=== PATIENT | male | born 1935 | race Caucasian/White ===

== ENCOUNTER 2018-01-05 10:02 | Emergency (ER) | payer MEDICARE, OTHER ==
[2018-01-05 10:38] LABS: BILIRUBIN,URINE NEGATIVE (NEGATIVE); GLUCOSE, URINE (UA) NEGATIVE (NEGATIVE); KETONES,URINE (UA) NEGATIVE (NEGATIVE); LEUKOCYTE ESTERASE, URINE NEGATIVE (NEGATIVE); NITRITE,URINE NEGATIVE (NEGATIVE); OCCULT BLOOD,URINE LARGE (NEGATIVE); PH,URINE 5.5 PH (5.0-7.5); PROTEIN,URINE 100 mg/dL (NEGATIVE); UROBILINOGEN,URINE 0.2 (NORMAL) E.U./dL (NORMAL)
[2018-01-05 10:39] LABS: CLARITY,URINE CLOUDY (CLEAR)
[2018-01-05 10:45] LABS: BASOPHILS # (AUTO) 0.1 10^3/uL (0.0-0.1); BASOPHILS % (AUTO) 0.9 %; EOSINOPHILS # (AUTO) 0.3 10^3/uL (0.0-0.7); EOSINOPHILS % (AUTO) 2.5 %; HGB - HEMOGLOBIN 14.9 g/dL (14.0-18.0); LYMPHOCYTES # (AUTO) 2.1 10^3/uL (1.5-3.5); LYMPHOCYTES % (AUTO) 20.3 %; MEAN CORPUSCULAR HGB CONC 33.2 g/dL (32.0-36.0); MEAN CORPUSCULAR VOLUME 93.6 fL (80.0-94.0); MEAN PLATELET VOLUME 8.2 fL (7.4-11.4); MONOCYTES # (AUTO) 1.1 10^3/uL (0.0-1.0); MONOCYTES % (AUTO) 10.1 %; NEUTROPHILS # (AUTO) 6.9 10^3/uL (1.5-6.6); NEUTROPHILS % (AUTO) 66.2 %; PLT - PLATELET COUNT 278 10^3/uL (130-450); RED BLOOD COUNT 4.79 10^6/uL (4.70-6.10); RED CELL DISTRIBUTION WIDTH 15.2 % (12.0-15.0); WHITE BLOOD COUNT 10.4 x10^3/uL (4.8-10.8)
[2018-01-05] MEDS ORDERED: SODIUM CHLORIDE 0.9% 1,000 ML IV ONE (10:47)
[2018-01-05] MEDS ORDERED: ONDANSETRON 4 MG/2 ML VIAL IVP STA (10:47)
[2018-01-05] MEDS ORDERED: MORPHINE 2 MG/ML SYRINGE IVP STA ×5 (10:47→19:23)
--- NOTE | 2018-01-05 10:50 | ED Physician Documentation ---
History of Present Illness - Stated complaint Stated Complaint: SIDE PX - Chief complaint Chief Complaint: Abd Pain - Additonal information Additional information: hx from pt 82 male hx kidney stones L flank pain and dark urine nausea no vomit no fever chills on eliquis Review of Systems Constitutional: denies: Fever, Chills Cardiac: denies: Chest pain / pressure, Palpitations Respiratory: denies: Dyspnea, Cough GI: reports: Nausea. denies: Abdominal Pain, Vomiting, Diarrhea : reports: Hematuria (dark) Musculoskeletal: reports: Back pain Endocrine: reports: Easy bruising / bleeding Immunocompromised: denies: Immunocompromised PD PAST MEDICAL HISTORY - Past Medical History Cardiovascular: Hypertension, Atrial flutter : Kidney stones Musculoskeletal: Osteoarthritis - Past Surgical History Past Surgical History: Yes Ortho: Knee replacement, Shoulder arthroplasty - Present Medications Home Medications: Ambulatory Orders Medication Instructions Recorded Confirmed Apixaban [Eliquis] 01/05/18 01/05/18 Terazosin [Hytrin] 01/05/18 Verapamil [Calan] 01/05/18 - Allergies Allergies/Adverse Reactions: Allergies Allergy/AdvReac Type Severity Reaction Status Date / Time No Known Drug Allergies Allergy Verified 01/05/18 10:10 - Social History Does the pt smoke?: No Smoking Status: Never smoker Does the pt drink ETOH?: Yes Does the pt have substance abuse?: No PD ED PE NORMAL - Vitals Vital signs reviewed: Yes - Cardiac Cardiac: RRR - Respiratory Respiratory: No respiratory distress, Clear bilaterally - Abdomen Abdomen: Soft, Non tender, Other (no pulsatile mass) - Back Back: No CVA TTP (hurts but no changed by palp) - Derm Derm: Normal color, Other (no shingles rash) - Neuro Neuro: Alert and oriented X 3 Results - Vitals Vitals: Vital Signs - 24 hr 01/05/18 01/05/18 01/05/18 10:08 11:05 13:07 Temperature 36.5 C 36.9 C Heart Rate 86 88 81 Respiratory 18 13 20 Rate Blood Pressure 162/95 H 145/113 H 151/105 H O2 Saturation 97 99 95 01/05/18 01/05/18 15:19 16:29 Temperature Heart Rate 106 H 108 H Respiratory 12 20 Rate Blood Pressure 147/110 H 152/109 H O2 Saturation 97 95 Oxygen O2 Source Room air - Labs Labs: Laboratory Tests 01/05/18 01/05/18 01/05/18 10:25 10:25 10:32 WBC 10.4 RBC 4.79 Hgb 14.9 Hct 44.8 MCV 93.6 MCH 31.0 MCHC 33.2 RDW 15.2 H Plt Count 278 MPV 8.2 Neut # (Auto) 6.9 H Lymph # (Auto) 2.1 [place] # (Auto) 1.1 H Eos # (Auto) 0.3 Baso # (Auto) 0.1 Absolute Nucleated RBC 0.00 Nucleated RBC % 0.0 Sodium 140 Potassium 3.6 Chloride 105 Carbon Dioxide 24 Anion Gap 11.0 BUN 26 H Creatinine 0.9 Estimated GFR (MDRD) 81 L Glucose 98 Calcium 8.7 Total Bilirubin 1.0 AST 36 ALT 24 Alkaline Phosphatase 93 Total Protein 8.1 Albumin 4.0 Globulin 4.1 Albumin/Globulin Ratio 1.0 Lipase 33 Urine Color BROWN Urine Clarity CLOUDY Urine pH 5.5 Ur Specific [place] >=1.030 H Urine Protein 100 H Urine Glucose (UA) NEGATIVE Urine Ketones NEGATIVE Urine Occult Blood LARGE H Urine Nitrite NEGATIVE Urine Bilirubin NEGATIVE Urine Urobilinogen 0.2 (NORMAL) Ur Leukocyte Esterase NEGATIVE Urine RBC TNTC H Urine WBC 0-3 Ur Squamous Epith Cells FEW Squamous Urine Bacteria Moderate H Urine Casts 0-2 Granular Casts Urine Mucus Few Strands Ur Microscopic Review INDICATED Urine Culture Comments INDICATED - Rads (name of study) CT AP Radiology: See rad report (6 X 8 X 4 mm proximal L ureteral stone) PD MEDICAL DECISION MAKING - ED course ED course: long long wait in ED for Portuguese to confirm beds urology called back to check on pt he will see pt in AM and has him booked for AM surgery - cystoscopy and stent continue morphine PRN bed confirmed EMS transport now pending turned over to mid shift pending transport - Sepsis Event Vital Signs: Vital Signs - 24 hr 01/05/18 01/05/18 01/05/18 10:08 11:05 13:07 Temperature 36.5 C 36.9 C Heart Rate 86 88 81 Respiratory 18 13 20 Rate Blood Pressure 162/95 H 145/113 H 151/105 H O2 Saturation 97 99 95 01/05/18 01/05/18 15:19 16:29 Temperature Heart Rate 106 H 108 H Respiratory 12 20 Rate Blood Pressure 147/110 H 152/109 H O2 Saturation 97 95 Oxygen O2 Source Room air Departure - Departure Disposition: 02 Transfer Acute Care Hosp Clinical Impression: Ureteral stone Condition: Good
[2018-01-05 10:53] LABS: BACTERIA,URINE Moderate /HPF (None Seen); CASTS, URINE 0-2 Granular Casts /LPF; RBC,URINE TNTC /HPF (0-5); SQUAMOUS EPITHELIAL CELL,UR FEW Squamous (<= Few)
[2018-01-05 10:53] LABS: CALCIUM 8.7 mg/dL (8.5-10.3); CREATININE 0.9 mg/dL (0.6-1.2); TOTAL PROTEIN 8.1 g/dL (6.7-8.2)
[2018-01-05 10:54] LABS: MUCUS,URINE Few Strands
--- NOTE | 2018-01-05 12:11 | CT Report ---
Procedure Date: 01/05/2018 Accession Number: [id number] / [id number] Procedure: CT - Abdomen/Pelvis W/O CPT Code: FULL RESULT: EXAM: CT ABDOMEN AND PELVIS (CT KUB) EXAM DATE: 01/05/2018 11:40 AM. CLINICAL HISTORY: L flank pain c/w renal colic. COMPARISONS: None. TECHNIQUE: Routine axial helical CT imaging was performed through the abdomen and pelvis without IV contrast. Reconstructions: Coronal and sagittal. In accordance with CT protocol optimization, one or more of the following dose reduction techniques were utilized for this exam: automated exposure control, adjustment of mA and/or KV based on patient size, or use of iterative reconstructive technique. FINDINGS: Lung Bases: 3 mm calcified granuloma posterior basal left lower lobe. Minimal physiologic dependent bibasilar atelectasis. Right Kidney/Ureter: Approximately 5 mm, 7 mm, and 6 mm upper pole and 2 mm lower pole right renal calculi. No hydronephrosis. 3.0 cm exophytic cortical cyst at the lower pole of the right kidney. Left Kidney/Ureter: 2.0 cm mildly exophytic mildly hyperdense nodular focus of the anterior upper pole cortex. No intrarenal calculi. 6 x 4 x 8 mm proximal left ureteral calculus at the L3-L4 level which is visible on the stake setter. Mild left hydronephrosis and perinephric fat stranding. Other Solid Organs: Noncontrast images of the solid organs are grossly unremarkable. Gallbladder/Bile Ducts: Unremarkable. Peritoneal Cavity: 1 cm diverticulum medially directed from the second portion of the duodenum. Stomach and small bowel nondistended. Appendix is normal. There is a small amount of formed stool in the colon. There is mild diverticulosis in the transverse and descending colon. There is marked diverticulosis in the sigmoid colon. There is no pericolonic fat stranding. There is no lymphadenopathy, ascites, or pneumoperitoneum. Pelvic Organs: The bladder is small in volume. There are no bladder calculi. The prostate gland is moderately enlarged and shows mild dystrophic calcification. Seminal vesicles are unremarkable. Vasculature: There is calcification in the right coronary artery. Heart size is upper normal. There is minimal aortoiliac atherosclerotic calcification without abnormal dilation. Other: Abdominal wall is unremarkable. 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 There is moderate multilevel lumbar degenerative disk disease. Status post L4 laminectomy bilaterally. IMPRESSION: 1. Mildly obstructing 6 x 4 x 8 mm proximal left ureteral calculus at the L3-L4 level. A stone of this size is unlikely to pass. 2. Nonobstructing right intrarenal calculi. 3. Moderate prostatomegaly. 4. Marked sigmoid colon diverticulosis. 5. Right coronary artery calcification. RADIA ADDENDUM: 01/05/18 12:56 As noted in the findings section, there is a 2 cm mildly hyperdense nodule at the anterior surface of the upper pole of the left kidney. The finding is difficult to characterize on this noncontrast study but may represent a hyperdense proteinaceous cyst rather than a solid nodule. Ultrasound would be of value in further characterization.
[2018-01-05] MEDS ORDERED: cefTRIAXone 1 GM in SODIUM CHLORIDE 0.9% MINIBAG 100 ML IV STA (12:48)
[2018-01-05 18:13] VITALS: BP 135/78
== END 2018-01-05 19:34 | disposition short-term general hospital (02) ==
LOC: ED 10:02
DX: N20.1 Calculus of ureter (principal); I10 Essential (primary) hypertension; Z96.659 Presence of unspecified artificial knee joint
CPT/HCPCS: 36415; 74176; 80053; 81001; 83690; 85025; 87086; 96361; 96365; 96375; 96376; 99284; J2270; 81003

== ENCOUNTER 2018-01-05 19:28 | Outpatient (CLI) | payer MEDICARE, OTHER | END 2018-01-05 19:29 | disposition short-term general hospital (02) | LOC: EMS 19:28 | PROVIDERS: ATTEND Surgery | DX: N20.0 Calculus of kidney (principal) | CPT/HCPCS: A0170; A0425; A0426 ==

== ENCOUNTER 2018-12-05 15:46 | Outpatient (CLI) | payer MEDICARE, OTHER ==
[2018-12-05 16:29] LABS: ALBUMIN 3.9 g/dL (3.2-5.5); BILIRUBIN,DIRECT 0.2 mg/dL (0.1-0.5); BILIRUBIN,TOTAL 1.3 mg/dL (0.2-1.0); TOTAL PROTEIN 7.5 g/dL (6.7-8.2)
[2018-12-05 16:42] LABS: INR 1.5 (0.8-1.2); PT - PROTHROMBIN TIME 17.2 secs (9.9-12.6)
[2018-12-08 16:08] LABS: HCV RNA QNT <1.18 NOT DETECTED Log IU/mL (NOT DETECTED); HCV RNA QUANT RT PCR <15 NOT DETECTED IU/mL (NOT DETECTED)
== END 2018-12-05 15:47 | disposition home or self-care (01) ==
LOC: LAB 15:46
PROVIDERS: ATTEND Nurse Practitioner
DX: I48.0 Paroxysmal atrial fibrillation (principal); R74.8 Abnormal levels of other serum enzymes
CPT/HCPCS: 36415; 80076; 81599; 82977; 85610; 86790; 87522

== ENCOUNTER 2023-02-03 18:39 | Emergency (ER) | payer MEDICARE, OTHER ==
[2023-02-03 18:47] VITALS: O2SAT 98
[2023-02-03] MEDS ORDERED: TETANUS/DIPHTHERIA/PERTUSSIS 0.5 ML SYRINGE IM ONE (18:59)
--- NOTE | 2023-02-03 19:00 | ED Physician Documentation ---
History of Present Illness - Stated complaint Stated Complaint: RT ARM LAC - Chief complaint Chief Complaint: Laceration - History obtained from History obtained from: Patient - History of Present Illness Timing: Today Pain level max: 0 Pain level now: 0 - Additonal information Additional information: 87-year-old male states that he fell today onto a piece of wood and caused a skin tear to the right forearm. Bandaged at home. Unknown last tetanus shot. Denies any other injuries. No head injury. No loss of consciousness. No headache. Not on blood thinners. Nothing makes it better or worse. Review of Systems Constitutional: denies: Fever GI: denies: Vomiting, Diarrhea Skin: denies: Rash Musculoskeletal: denies: Neck pain, Back pain Neurologic: denies: Headache PD PAST MEDICAL HISTORY - Past Medical History Cardiovascular: Hypertension, Atrial flutter : Kidney stones Musculoskeletal: Osteoarthritis - Past Surgical History Past Surgical History: Yes Ortho: Knee replacement, Shoulder arthroplasty - Present Medications Home Medications: Ambulatory Orders Medication Instructions Recorded Confirmed Apixaban [Eliquis] 2.5 mg PO DAILY 01/05/18 02/03/23 Terazosin [Hytrin] 5 mg PO DAILY 01/05/18 02/03/23 Verapamil [Calan] 80 mg PO DAILY 01/05/18 02/03/23 - Allergies Allergies/Adverse Reactions: Allergies Allergy/AdvReac Type Severity Reaction Status Date / Time No Known Drug Allergies Allergy Verified 02/03/23 18:43 - Social History Does the pt smoke?: No Smoking Status: Never smoker Does the pt drink ETOH?: Yes Does the pt have substance abuse?: No PD ED PE NORMAL - Vitals Vital signs reviewed: Yes - General General: Alert and oriented X 3, No acute distress - HEENT HEENT: Atraumatic, PERRL, Moist mucous membranes - Neck Neck: Supple, no meningeal sign, No bony TTP - Back Back: No spinal TTP - Derm Derm: Warm and dry - Extremities Extremities: Other (R forearm - 0.5x2cm skin avulsion) - Neuro Neuro: Alert and oriented X 3, med dir 2-12 intact, No motor deficit, No sensory deficit, Normal speech Eye Opening: Spontaneous Motor: Obeys Commands Verbal: Oriented GCS Score: 15 Results - Vitals Vitals: Vital Signs - 24 hr 02/03/23 02/03/23 18:43 19:17 Temperature 36.5 C 36.8 C Heart Rate 68 70 Respiratory 16 20 Rate Blood Pressure 145/88 H 142/80 H O2 Saturation 98 98 Oxygen O2 Source Room air PD Medical Decision Making - ED course Complexity details: considered differential, d/w patient ED course: Patient with a small skin tear on the arm. The wound was cleansed and bandaged. Tdap given. No evidence of foreign body. Warnings of infection and instructions on wound care given at bedside. Also counseled on how to minimize scarring. Patient counseled regarding signs and symptoms for which I believe and urgent re-evaluation would be necessary. Patient with good understanding of and agreement to plan and is comfortable going home at this time This document was made in part using voice recognition software. While efforts are made to proofread this document, sound alike and grammatical errors may occur. Departure - Departure Disposition: 01 Home, Self Care Clinical Impression: Skin tear Condition: Good Instructions: ED Avulsion Dermal Follow-Up: your,doctor in 1 week for wound check [Other] Comments: Please follow with your doctor in 1 week for a wound check. Keep the wound clean. Return if you notice redness, swelling or drainage from the wound. You were given a tetanus shot today. Forms: PCP List Discharge Date/Time: 02/03/23 19:17
[2023-02-03 19:24] VITALS: BP 142/80
== END 2023-02-03 19:17 | disposition home or self-care (01) ==
LOC: ED 18:39
DX: S41.111A Laceration without foreign body of right upper arm, initial encounter (principal); W19.XXXA Unspecified fall, initial encounter; I10 Essential (primary) hypertension; Z23 Encounter for immunization
CPT/HCPCS: 90471; 99282; 99283

== ENCOUNTER 2023-06-20 22:26 | Outpatient (CLI) | payer MEDICARE, OTHER | END 2023-06-20 23:59 | disposition critical access hospital (66) | LOC: EMS 22:26 | DX: R55 Syncope and collapse (principal); R07.1 Chest pain on breathing; R07.89 Other chest pain; W19.XXXA Unspecified fall, initial encounter; Y92.012 Bathroom of single-family (private) house as the place of occurrence of the external cause; I48.91 Unspecified atrial fibrillation; R00.8 Other abnormalities of heart beat; I49.3 Ventricular premature depolarization | CPT/HCPCS: A0425; A0429 ==

== ENCOUNTER 2023-06-20 22:45 | Observation (INO) | payer MEDICARE, OTHER ==
--- NOTE | 2023-06-21 00:36 | ED Physician Documentation ---
History of Present Illness - Stated complaint Stated Complaint: GLF, RIB PAIN - Chief complaint Chief Complaint: Trauma Ch/Bk - History obtained from History obtained from: Patient - Additonal information Additional information: HPI from patient. Patient presents with chief complaint of right lower chest wall/rib pain. At approximately noon today patient underwent ureteroscopy for laser lithotripsy of a right-sided kidney stone. Per patient, the procedure was not a success, and the plan is to schedule for another procedure in the coming weeks (patient's description sounds suggestive of nephrostomy). The kidney stone was an incidental discovery on imaging study; he did not have any pain leading up to the procedure today. Tonight at approximately 10 PM, patient was at home and getting ready for bed. He says he braced himself against a wall, and then woke up on the floor of the bathroom. Upon waking up, and since the incident, he has had right lower anterolateral chest wall pain that is worse with palpation, movement, and deep breath in. It is unclear if he had presyncopal symptoms; patient says that, due to peripheral neuropathy, it is not uncommon for him to need to brace against t he wall as he walks. He does not recall having any lightheadedness, chest pain, shortness of breath. He denies headache, visual changes, weakness, numbness, dyspnea at this time. Note that patient takes eliquis for atrial fibrillation but this was stopped 4 days ago (in anticipation of the urology procedure). Review of Systems Constitutional: reports: Fever, Fatigue Cardiac: reports: Chest pain / pressure (right anterolateral chest wall pain) Respiratory: denies: Dyspnea, Cough, Hemoptysis GI: reports: Reviewed and negative : denies: Dysuria, Frequency Musculoskeletal: reports: Reviewed and negative Neurologic: reports: Syncope, LOC. denies: Generalized weakness, Focal weakness, Numbness, Headache, Head injury PD PAST MEDICAL HISTORY - Past Medical History Past Medical History: Yes Cardiovascular: Hypertension, Atrial flutter : Kidney stones Musculoskeletal: Osteoarthritis - Past Surgical History Past Surgical History: Yes Ortho: Knee replacement, Shoulder arthroplasty - Present Medications Home Medications: Ambulatory Orders Medication Instructions Recorded Confirmed Apixaban [Eliquis] 2.5 mg PO DAILY 01/05/18 06/20/23 Terazosin [Hytrin] 5 mg PO DAILY 01/05/18 06/20/23 Verapamil [Calan] 80 mg PO DAILY 01/05/18 06/20/23 - Allergies Allergies/Adverse Reactions: Allergies Allergy/AdvReac Type Severity Reaction Status Date / Time No Known Drug Allergies Allergy Verified 06/20/23 23:02 - Social History Does the pt smoke?: No Smoking Status: Never smoker Does the pt drink ETOH?: Yes Does the pt have substance abuse?: No PD ED PE NORMAL - Vitals Vital signs reviewed: Yes - General General: Alert and oriented X 3, No acute distress (NAD at rest but obvious painful discomfort with movement involving torso), Well developed/nourished - HEENT HEENT: Atraumatic, PERRL, EOMI - Neck Neck: No bony TTP - Cardiac Cardiac: RRR, No murmur - Respiratory Respiratory: No respiratory distress, Clear bilaterally - Abdomen Abdomen: Soft, Non distended, Other (RUQ TTP without guarding or rebound) - Extremities Extremities: No deformity, No tenderness to palpate, Normal ROM s pain, No edema - Neuro Neuro: Alert and oriented X 3, division service manager 2-12 intact, No motor deficit, No sensory deficit, Normal speech Eye Opening: Spontaneous Motor: Obeys Commands Verbal: Oriented GCS Score: 15 PD ED PE EXPANDED - Cardiac Cardiac: Chest wall TTP (right lower anterolateral chest wall TTP) Results - Vitals Vitals: Vital Signs - 24 hr 06/20/23 06/20/23 06/21/23 22:53 23:26 01:00 Temperature Heart Rate 103 H 96 101 H Respiratory 22 17 17 Rate Blood Pressure 152/89 H 163/93 H 152/95 H O2 Saturation 96 98 95 06/21/23 06/21/23 06/21/23 01:55 03:00 04:04 Temperature 36.5 C 36.2 C L Heart Rate 90 91 Respiratory 18 17 Rate Blood Pressure 148/85 H 163/91 H O2 Saturation 96 93 06/21/23 06:00 Temperature Heart Rate 87 Respiratory 18 Rate Blood Pressure 138/99 H O2 Saturation 96 Oxygen O2 Source Room air - EKG (time done) No standard instances EKG releavant findings:: EKG personally interpreted by author of this note. Relevant findings are: Rate: Rate (enter#) (103) Rhythm: Atrial fibrillation [place]: LAD Ischemia: Normal ST segments Other comments: Other comments (PVCs) - Labs Labs: Laboratory Tests 06/21/23 06/21/23 06/21/23 01:45 01:45 01:45 WBC 16.3 H RBC 3.23 L Hgb 9.0 L Hct 29.9 L MCV 92.6 MCH 27.9 MCHC 30.1 L RDW 16.4 H Plt Count 264 MPV 10.0 Neut # (Auto) Not Reportable Lymph # (Auto) Not Reportable [place] # (Auto) Not Reportable Eos # (Auto) Not Reportable Baso # (Auto) Not Reportable Absolute Nucleated RBC Not Reportable Total Counted 100 Band Neuts % (Manual) 4 Abnorm Lymph % (Manual) 0 Nucleated RBC % Not Reportable Neutrophils # (Manual) 15.0 H Lymphocytes # (Manual) 0.8 L Monocytes # (Manual) 0.5 Eosinophils # (Manual) 0.0 Basophils # (Manual) 0.0 Differential Comment MANUAL DIFFERENTIAL Platelet Estimate NORMAL (130-450,000) RBC Morph Micro Appear NORMAL APPEARANCE Sodium 136 Potassium 4.8 H Chloride 108 Carbon Dioxide 21 Anion Gap 7.0 BUN 36 H Creatinine 1.5 H Estimated GFR (MDRD) 44 L Glucose 107 H Calcium 8.5 Total Bilirubin 0.5 AST 27 ALT 16 Alkaline Phosphatase 159 H Troponin I High Sens 87.0 H* Total Protein 7.1 Albumin 3.6 Globulin 3.5 Albumin/Globulin Ratio 1.0 Lipase 29 06/21/23 04:48 WBC RBC Hgb Hct MCV MCH MCHC RDW Plt Count MPV Neut # (Auto) Lymph # (Auto) [place] # (Auto) Eos # (Auto) Baso # (Auto) Absolute Nucleated RBC Total Counted Band Neuts % (Manual) Abnorm Lymph % (Manual) Nucleated RBC % Neutrophils # (Manual) Lymphocytes # (Manual) Monocytes # (Manual) Eosinophils # (Manual) Basophils # (Manual) Differential Comment Platelet Estimate RBC Morph Micro Appear Sodium Potassium Chloride Carbon Dioxide Anion Gap BUN Creatinine Estimated GFR (MDRD) Glucose Calcium Total Bilirubin AST ALT Alkaline Phosphatase Troponin I High Sens 91.4 H* Total Protein Albumin Globulin Albumin/Globulin Ratio Lipase - Rads (name of study) right ribs with PA chest Relevant Findings:: Prelim report reviewed, See rad report CT A/P with IV contrast Relevant Findings:: Prelim report reviewed, See rad report CT chest w/o contrast Relevant Findings:: Prelim report reviewed, See rad report PD Medical Decision Making - ED course Complexity details: reviewed results, re-evaluated patient, considered differential, d/w patient ED course: Presents after syncopal episode at home with brief LOC. As result of falling to the floor, he sustained 4 rib fractures (radiologist interpretation of the plain-film x-rays was initially 2 rib fractures, CT of the abdomen pelvis read as 3 rib fractures, and subsequent CT of the chest is fractures of ribs 6, 7, 8, and 9). The studies also show evidence of right-sided hydropneumothorax, estimated to be up to 10% in size. There is no evidence of intra-abdominal injury on the CT of the abdomen and pelvis. The patient is in NAD during ED stay as long as he remains at rest in the bed. He has obvious painful distress with palpation of the right chest wall as well as with any movement involving the torso. His pain is adequately controlled with aliquots of IV morphine. There are no concerning findings on EKG. Patient is afebrile. He has leukocytosis with white blood cell count of 16.3, likely due to demargination associated with tonight's injury. Hemoglobin is low at 9.0; given the trace amount of fluid on CT of the chest, this is unlikely to represent acute blood loss. Mild hyperkalemia with potassium of 4.8. Mildly elevated renal function test with BUN of 36 and creatinine 1.5. His high- sensitivity troponin is elevated (87), but a 3-hour repeat results at 91.4, representing an insignificant change from the initial value. Given multiple rib fractures, hemopneuomthorax and patient's age, admission to ICU is indicated. I discussed this case with Dr. Guerra (document control supervisor surgery for [facility]), agrees with admission provided I first discuss the case with patient's urologist first. I was able to reach Dr. Kraft, the urologist who performed the lithotripsy yesterday at [facility] in [place]. Dr. Kraft says that from the urology standpoint there is no indication for transfer at this time provided patient is not evidencing signs/symptoms of infection. I had not ordered a UA at that point but Dr. Kraft advises against UA unless patient is specifically describing symptoms of urologic-related infection (such as dysuria), as he will likely have both RBCs and WBCs due to the recent procedure. Dr. Kraft also confirms that attempts at lithotripsy, as well as stent placement, were unsuccessful and the plan is indeed to take patient back to OR in the coming weeks for reattempt at stent but from proximal end of ureter via nephrostomy. Dr. Kraft says that the air noted in right kidney on CT is normal finding given yesterday's procedure. Patient is comfortable with admission to [facility]. Departure - Departure Disposition: [facility] DC/Xfer Clinical Impression: Pneumothorax on right Rib fractures Qualifiers: Encounter type: initial encounter Fracture type: closed Laterality: right Qualified Code(s): S22.41XA - Multiple fractures of ribs, right side, initial encounter for closed fracture Syncope Qualifiers: Syncope type: unspecified Qualified Code(s): R55 - Syncope and collapse Condition: Stable
[2023-06-21] MEDS ORDERED: MORPHINE 2 MG/ML CARPUJECT IVP STA ×3 (01:09→04:43)
[2023-06-21] MEDS ORDERED: iohexoL-300 100 ML VIAL ONE (01:17)
[2023-06-21 01:53] LABS: BASOPHILS % (AUTO) 0.2 %; HCT - HEMATOCRIT 29.9 % (42.0-52.0); LYMPHOCYTES % (AUTO) 7.8 %; MEAN CORPUSCULAR HEMOGLOBIN 27.9 pg (27.0-31.0); MEAN CORPUSCULAR HGB CONC 30.1 g/dL (32.0-36.0); MEAN CORPUSCULAR VOLUME 92.6 fL (80.0-94.0); NEUTROPHILS % (AUTO) 81.5 %; PLT - PLATELET COUNT 264 10^3/uL (130-450); RED BLOOD COUNT 3.23 10^6/uL (4.70-6.10); RED CELL DISTRIBUTION WIDTH 16.4 % (12.0-15.0); WHITE BLOOD COUNT 16.3 x10^3/uL (4.8-10.8)
[2023-06-21 02:00] LABS: ABNORMAL LYMPHS % (MANUAL) 0 %
[2023-06-21 02:08] LABS: ALBUMIN 3.6 g/dL (3.2-5.5)
[2023-06-21 02:46] LABS: BILIRUBIN,TOTAL 0.5 mg/dL (0.2-1.0); CALCIUM 8.5 mg/dL (8.5-10.3); POTASSIUM 4.8 mmol/L (3.5-4.5); TOTAL PROTEIN 7.1 g/dL (6.4-8.9)
[2023-06-21 03:19] LABS: CREATININE 1.5 mg/dL (0.6-1.3)
[2023-06-21 03:25] LABS: BAND NEUTROPHILS % (MANUAL) 4 %; DIFFERENTIAL COMMENT MANUAL DIFFERENTIAL; LYMPHOCYTES # (MANUAL) 0.8 10^3/uL (1.5-3.5); LYMPHOCYTES % (MANUAL) 5 %; MONOCYTES # (MANUAL) 0.5 10^3/uL (0.0-1.0); PLATELET ESTIMATE, MANUAL NORMAL (130-450,000) (NORMAL); RBC MORPHOLOGY (MULTIPLE) NORMAL APPEARANCE (NORMAL)
[2023-06-21] MEDS ORDERED: iohexoL-300 100 ML VIAL IVP ONE (04:17)
--- NOTE | 2023-06-21 07:08 | CONSULTATION NOTE ---
Surgery Consult - Home Meds/Allergies Home Medications: Patient History Medication Instructions Recorded Confirmed Apixaban [Eliquis] 2.5 mg PO DAILY 01/05/18 06/20/23 Terazosin [Hytrin] 5 mg PO DAILY 01/05/18 06/20/23 Verapamil [Calan] 80 mg PO DAILY 01/05/18 06/20/23 Allergies/Adverse Reactions: Allergies Allergy/AdvReac Type Severity Reaction Status Date / Time No Known Drug Allergies Allergy Verified 06/20/23 23:02 - Vital Signs Vital Signs: Last Vital Signs Temp 97.2 F L 06/21/23 04:04 Pulse 91 06/21/23 04:04 Resp 17 06/21/23 04:04 BP 163/91 H 06/21/23 04:04 Pulse Ox 93 06/21/23 04:04 O2 Flow Rate - Lab Results Result Diagrams: 06/21/23 01:45 06/21/23 01:45 - Consultation Note Consultation Note: General Surgery Rib Fracture Consultation Note Assessment: 1) Fracture right ribs 6,7,8 with tiny right hemopneumothorax - Pain under good control and no clinical signs of respiratory distress 2) Syncopal episode with GLF causing #1 3) S/P attempted right lithotripsy 06/20/15 4) Atrial fibrillation, on chronic Eliquis (stopped 5 days ago) 5) History of autoimmune disorder Recommendation: It would be prudent to contact his [place] Urologist and inform him of his patient's syncope and GLF. They may prefer to manage his care there as this occurred within 24 hours of discharge from their facility. Otherwise, we should admit this patient to the ICU under the care of our [facility] and Surgery will assist in management of his rib fractures. His age and the number of ribs fractured place him at high risk for morbidity (pneumonia) and mortality. Rib Fracture Multimodality Analgesia Strategy 1) Lidocaine patch right chest wall. Change q 12 hrs 2) Acetaminophen and Gabapentin scheduled; Oxycodone PO prn 3) IV Dilaudid as needed 4) IS 5-6 x per hour 5) Supplemental oxygen as needed 6) Dangle at bedside/ambulate 4-6 x a day 7) Consider epidural catheter (consult anesthesia) if above analgesic measures fail to provide enough relief for adequate pulmonary hygiene 8) His elevated serum creatinine precludes the use of NSAID's at this time 9) Surgery will follow Reason for Consultation GLF with right rib fractures Chief Complaint Mild right chest wall pain HPI Floyd is an 87 year old male who underwent an attempt at lithotripsy of a right kidney stone at [facility] yesterday. He stopped his Eliquis 4 days prior to that procedure. He was discharged at around 1100 and last evening while walking in his home he had a syncopal episode that caused him to fall to the ground onto his left side. It was unwitnessed and he does not remember falling. His heard him fall and called for an ambulance that brought him to our ED. He has been hemodynamically stable since admission and CT/CXR workup identified 3 right rib fractures with a tiny tight hemopneumothorax. Troponins were obtained and are elevated and his cardiac rhythm demonstrates atrial fibrillation with a normal rate. I was asked by the ED physician to assist in Floyd's evaluation and management. Floyd and his live in [place] and their entire care team is at [facility]. [place] are currently residing there. He denies SOB and only has mild right sided chest pain with deep inspiration. he has been given IV morphine in the ED to control his chest wall discomfort. Past Medical History Atrial fibrillation Autoimmune disorder Past Surgical History Bilateral shoulder and knee surgery. Denies Thoracic or Abdominal surgery Current Medications Eliquis, Verapamil, Terazosin Allergies None ROS Pertinent positives Mild right chest pain with deep inspiration All other reviewed systems negative VS - see above PE GENERAL APPEARANCE: Normal development, normal body habitus, normal grooming PSYCHIATRIC: AAO; Comfortable; In NAD EYES: Pupils equil, round and reactive to light, sclera anicteric EARS, NOSE, MOUTH, THROAT: Hearing normal, Oral mucous membranes moist and without lesions; NECK: No crepitus, lymphadenopathy, or thyromegaly LUNGS: Clear to auscultation without wheezing; No use of accessory muscles to breathe; CHEST WALL: Tenderness right lateral rib cage without crepitus, flail, or rib movement; No ecchymosis SKIN: Anicteric; No rashes, lesions, Ulcerations Labs - See above Imaging CT chest - fractured right ribs 5, 6,7,8; non-displaced; tiny right hemopneumothorax All images were personally reviewed by me for this encounter - NAREN Guerra MD, FACS General Surgery Service
[2023-06-21] MEDS ORDERED: SODIUM CHLORIDE FLUSH 0.9% 10 ML SYRINGE IVP PRN (07:57)
[2023-06-21] MEDS ORDERED: ONDANSETRON 4 MG/2 ML VIAL IVP PRN (07:57)
[2023-06-21] MEDS ORDERED: oxyCODONE 5 MG TABLET PO PRN (07:57)
[2023-06-21] MEDS ORDERED: HYDROmorphone 0.5 MG/0.5 ML SYRINGE IVP PRN (07:57)
--- NOTE | 2023-06-21 08:06 | HISTORY & PHYSICAL EXAMINATION ---
History - Past Medical History Cardiovascular: reports: Hypertension, Atrial flutter : reports: Kidney stones Musculoskeletal: reports: Osteoarthritis MRSA Hx?: No - Past Surgical History Ortho: reports: Knee replacement, Shoulder arthroplasty Meds/Allgy - Home Medications Home Medications: Ambulatory Orders Medication Instructions Recorded Confirmed Apixaban [Eliquis] 2.5 mg PO DAILY 01/05/18 06/20/23 Terazosin [Hytrin] 5 mg PO DAILY 01/05/18 06/20/23 Verapamil [Calan] 80 mg PO DAILY 01/05/18 06/20/23 - Allergies Allergies/Adverse Reactions: Allergies Allergy/AdvReac Type Severity Reaction Status Date / Time No Known Drug Allergies Allergy Verified 06/20/23 23:02 Exam - Vital Signs Vital Signs: Vital Signs x48h Temp Pulse Resp BP Pulse Ox 06/21/23 06:00 87 18 138/99 H 96 06/21/23 04:04 97.2 F L 91 17 163/91 H 93 06/21/23 03:00 90 18 148/85 H 96 06/21/23 01:55 97.7 F 06/21/23 01:00 101 H 17 152/95 H 95 Conclusion/Plan - Lab Results Fish Bones: 06/21/23 01:45 06/21/23 01:45 - Other Other Results/Comments: General Surgery H&P Assessment: 1) Fracture right ribs 6,7,8 with tiny right hemopneumothorax - Pain under good control and no clinical signs of respiratory distress 2) Syncopal episode with GLF causing #1 3) S/P attempted right lithotripsy 06/20/15 4) Atrial fibrillation, on chronic Eliquis (stopped 5 days ago) 5) History of autoimmune disorder Recommendation: It would be prudent to contact his [place] Urologist and inform him of his patient's syncope and GLF. They may prefer to manage his care there as this occurred within 24 hours of discharge from their facility. Otherwise, we should admit this patient to the ICU under the care of our [facility] and Surgery will assist in management of his rib fractures. His age and the number of ribs fractured place him at high risk for morbidity (pneumonia) and mortality. Addendum: The above was done and [facility] has no issues with us admitting this patient to our facility. The patient will be admitted to the General Surgery Service for management of his rib fractures with Internal Medicine as a surgical product sales consultant to assist in management of his other medical conditions. - NAREN Rib Fracture Multimodality Analgesia Strategy 1) Lidocaine patch right chest wall. Change q 12 hrs 2) Acetaminophen and Gabapentin scheduled; Oxycodone PO prn 3) IV Dilaudid as needed 4) IS 5-6 x per hour 5) Supplemental oxygen as needed 6) Dangle at bedside/ambulate 4-6 x a day 7) Consider epidural catheter (consult anesthesia) if above analgesic measures fail to provide enough relief for adequate pulmonary hygiene 8) His elevated serum creatinine precludes the use of NSAID's at this time Reason for Consultation GLF with right rib fractures Chief Complaint Mild right chest wall pain HPI Floyd is an 87 year old male who underwent an attempt at lithotripsy of a right kidney stone at [facility] yesterday. He stopped his Eliquis 4 days prior to that procedure. He was discharged at around 1100 and last evening while walking in his home he had a syncopal episode that caused him to fall to the ground onto his left side. It was unwitnessed and he does not remember falling. His heard him fall and called for an ambulance that brought him to our ED. He has been hemodynamically stable since admission and CT/CXR workup identified 3 right rib fractures with a tiny tight hemopneumothorax. Troponins were obtained and are elevated and his cardiac rhythm demonstrates atrial fibrillation with a normal rate. I was asked by the ED physician to assist in Floyd's evaluation and management. Floyd and his live in [place] and their entire care team is at [facility]. He denies SOB and only has mild right sided chest pain with deep inspiration. he has been given IV morphine in the ED to control his chest wall discomfort. Past Medical History Atrial fibrillation Autoimmune disorder Past Surgical History Bilateral shoulder and knee surgery. Denies Thoracic or Abdominal surgery Current Medications Eliquis, Verapamil, Terazosin Allergies None ROS Pertinent positives Mild right chest pain with deep inspiration All other reviewed systems negative VS - see above PE GENERAL APPEARANCE: Normal development, normal body habitus, normal grooming PSYCHIATRIC: AAO; Comfortable; In NAD EYES: Pupils equil, round and reactive to light, sclera anicteric EARS, NOSE, MOUTH, THROAT: Hearing normal, Oral mucous membranes moist and without lesions; NECK: No crepitus, lymphadenopathy, or thyromegaly LUNGS: Clear to auscultation without wheezing; No use of accessory muscles to breathe; CHEST WALL: Tenderness right lateral rib cage without crepitus, flail, or rib movement; No ecchymosis SKIN: Anicteric; No rashes, lesions, Ulcerations Labs - See above Imaging CT chest - fractured right ribs 5, 6,7,8; non-displaced; tiny right he mopneumothorax All images were personally reviewed by me for this encounter - NAREN Guerra MD, [facility] General Surgery Service
--- NOTE | 2023-06-21 08:23 | XRAY Report ---
PROCEDURE: Ribs w/PA Chest 3+V RT INDICATIONS: fall, right low chest wall pain TECHNIQUE: 6 views of the ribs were acquired, along with a single view chest. COMPARISON: None. FINDINGS: Surgical changes and devices: There is bilateral shoulder arthroplasty. Bones and chest wall: Minimally displaced fractures involving right lateral seventh and eighth ribs are seen.. No suspicious bony lesions. Overlying soft tissues appear unremarkable. Lungs and pleura: There is small right pleural effusion and possible trace left pleural effusion. Bib asilar atelectasis versus small infiltrate is seen. Small less than 10% right apical pneumothorax is noted. Mediastinum: Mildly tortuous thoracic aorta and cardiomegaly is seen. IMPRESSION: Minimally displaced right lateral seventh and eighth rib fractures. Small less than 10% right apical pneumothorax. Right greater than left bilateral pleural effusion and bibasilar atelectasis. Findings are concordant with preliminary interpretation provided by [facility]. Reviewed by: Cody Chand MD on 06/21/2023 8:22 AM PST Approved by: Cody Chand MD on 06/21/2023 8:22 AM PST Station ID: [id number]
[2023-06-21] MEDS: FAMOTIDINE 20 MG/2 ML VIAL IVP SCH ×2 (09:22→21:32)
[2023-06-21] MEDS: LACTATED RINGERS 1,000 ML IV SCH ×2 (09:24→22:42)
[2023-06-21] MEDS: SODIUM CHLORIDE FLUSH 0.9% 10 ML SYRINGE IVP SCH ×2 (09:24→16:42)
[2023-06-21] MEDS: LIDOCAINE PATCH 4% TOP SCH ×2 (10:02→21:32)
--- NOTE | 2023-06-21 10:39 | CT Report ---
PROCEDURE: Chest WO INDICATIONS: right rib fractures, pneumothorax TECHNIQUE: A CT scan of the chest was performed. Intravenous contrast media was not administered. Images were re corded and evaluated at appropriate window settings. Reformats: axial MIP of the chest, coronal and s agittal. For radiation dose reduction, the following was used: automated exposure control, adjustment of mA and/or kV according to patient size. COMPARISON: Chest x-ray performed same day FINDINGS: Image quality: Excellent. Lungs and pleura: Small parenchymal consolidation posterior medial in the right lower lobe with mild overlying groundglass opacity, underlying trace effusion, and small subpleural pneumatoceles. Small d ependent left lung base consolidation and trace effusion. A small anteriorly layering right pneumotho rax. No mediastinal shift. No left pneumothorax. No suspicious pulmonary nodules or masses. Mediastinum: Heart size is enlarged with moderate coronary artery calcification. Trace pericardial ef fusion. Mildly aneurysmal ascending thoracic aorta at 4.4 cm AP diameter. A few borderline noncalcifi ed mediastinal lymph nodes, the largest right paratracheal lymph node measures 1.2 cm. There are calc ified left hilar lymph nodes. No substernal hematoma or anterior mediastinal mass. Normal esophagus w ithout hiatal hernia. Chest wall and lower neck: Right lateral subcutaneous emphysema and small amount of right chest wall hemorrhage posterolaterally just caudal to the scapula. The thyroid gland is not well seen. There are bilateral shoulder arthroplasties obscuring the upper chest. No axillary or supraclavicular adenopat hy by size. Bones: Acute right lateral rib fractures 5, 6, 7, and 8. No visible vertebral body fractures. Degener ative changes in the discs and endplates. Upper Abdomen: Small amount of air in the right intrarenal collecting system consistent with recent p rocedure. Otherwise unremarkable IMPRESSION: 1. Acute right fifth through eighth rib fractures with trace overlying subcutaneous emphysema and sma ll underlying pneumothorax. 2. Bibasilar parenchymal consolidations with adjacent groundglass opacity and small subpleural pneuma toceles. This is likely atelectasis, cannot exclude small parenchymal contusion. 3. Ascending aortic aneurysm without mediastinal hematoma. 4. Final interpretation concordant with preliminary report. Reviewed by: Candida Aguilera MD on 06/21/2023 10:37 AM PST Approved by: Candida Aguilera MD on 06/21/2023 10:37 AM PST Station ID: [id number]
--- NOTE | 2023-06-21 11:08 | CT Report ---
PROCEDURE: Abdomen/Pelvis W INDICATIONS: fall, right low rib and RUQ pain/tenderness CONTRAST: Omni 300, 100mls TECHNIQUE: After the administration of intravenous contrast, a CT scan of the abdomen and pelvis was performed. Images were recorded and evaluated at appropriate window settings. Reformats: coronal and sagittal. F or radiation dose reduction, the following was used: automated exposure control, adjustment of mA and /or kV according to patient size. COMPARISON: None. FINDINGS: Image quality: Excellent. Lung bases and heart: Bibasilar parenchymal densities and groundglass opacities. Cardiomegaly. A very small anteriorly layering right pneumothorax. Liver: Normal size liver. Smooth margin. No mass. Gallbladder and biliary tree: No calcifications or wall thickening. Nondilated biliary tree. Spleen: No splenomegaly. Pancreas: No pancreatic ductal dilation. Adrenals: No adrenal nodule. Kidneys and ureters: There are 2 large calcifications in the right mid ureter at the pelvic inlet, on e measuring 1.2 and the other measuring 1.5 cm. There is proximal hydroureter and mild hydronephrosis . There are 2 retained right lower pole intrarenal calcifications. There is a moderately delayed righ t nephrogram and moderate air in the right collecting system due to recent lithotripsy. Partially exo phytic cysts arise from the right lower pole. Indeterminant density cystic lesion arises from the med ial left upper pole. Bowel and peritoneum: Extensive sigmoid diverticulosis. No small bowel obstruction. Normal appendix. Lymph nodes: No central or retroperitoneal adenopathy. Vessels: Normal caliber vasculature. No retroperitoneal hematoma. PELVIS Reproductive organs: Moderate prostatomegaly. There is a hyperdense/enhancing, microlobulated mass me asuring about 3.8 x 4.2 cm arising from the left aspect of the seminal vesicles/prostate gland. Bladder: Trace amount of air. No calcifications or wall thickening. Pelvic lymph nodes: No pelvic adenopathy by size criteria. Bones: Healed deformity of prior pelvic fractures at the symphysis. Sacroiliac joint ankylosis. Verte bral augmentation cement at L4. No visible acute fractures. Other: Nonobstructing bowel containing right inguinal hernia. IMPRESSION: 1. Obstructing right mid ureteral calcifications causing right hydroureteronephrosis and delayed righ t nephrogram/delayed renal function. 2. New enhancing mass arising from the left prostate gland/seminal vesicle. 3. Nonobstructing small bowel containing right inguinal hernia. 4. Partially seen posttraumatic findings in the right chest. No evidence of acute trauma to the abdom en or pelvis. Discrepant findings were discussed with patient's ICU nurse at time of dictation. Reviewed by: Candida Aguilera MD on 06/21/2023 11:07 AM PST Approved by: Candida Aguilera MD on 06/21/2023 11:07 AM PST Station ID: [id number]
[2023-06-21] MEDS: ACETAMINOPHEN 325 MG TABLET PO SCH ×2 (12:05→17:41)
[2023-06-21] MEDS: GABAPENTIN 100 MG CAPSULE PO SCH ×2 (13:23→21:32)
--- NOTE | 2023-06-21 13:51 | PHARMACY PROGRESS NOTE ---
- Best Possible Medication History Admit Date and Time: 06/21/23 0757 Processed by: Pharmacy Medication History completed: Yes Patient Interview: Completed Secondary Source(s): Insurance records As the person ultimately responsible for medication therapy, providers are able to order a medication from an existing home medication list in [facility] via the "Reconcile Routine" prior to Confirmation of that medication by network desktop support specialist. Such practice is discouraged except when the physician, in their clinical judgment, deems that a medical need exists for a medication without regard to previous use.
--- NOTE | 2023-06-21 16:32 | XRAY Report ---
PROCEDURE: Chest 1V INDICATIONS: FOLLOW UP RIGHT HEMOPNEUMOTHORAX TECHNIQUE: One view of the chest was acquired. COMPARISON: Chest x-ray 8:09 AM FINDINGS: Surgical changes and devices: Bilateral shoulder arthroplasties. Overlying monitoring wires. Lungs and pleura: Diffuse thickening of the interstitial markings and developing right infrahilar op acity. Known right-sided pneumothorax present in the right lung with pleural line projecting between the third and fourth posterior rib arcs. Small right pleural effusion. Mediastinum: Cardiomegaly. Mild central vascular prominence, stable compared to prior. Bones and chest wall: No lateral right-sided rib fractures suboptimally seen on this single view sonia st x-ray. IMPRESSION: 1. Visualization of a small right pneumothorax without tension. 2. Persistent bilateral interstitial thickening suggesting edema or fluid overload. 3. Mild developing right lower lung opacity may be combination of atelectasis and effusion. Reviewed by: Candida Aguilera MD on 06/21/2023 4:30 PM PST Approved by: Candida Aguilera MD on 06/21/2023 4:30 PM PST Station ID: [id number]
[2023-06-22] MEDS: SODIUM CHLORIDE FLUSH 0.9% 10 ML SYRINGE IVP SCH ×2 (01:03→08:11)
[2023-06-22 05:00] LABS: BASOPHILS # (AUTO) 0.1 10^3/uL (0.0-0.1); BASOPHILS % (AUTO) 0.5 %; EOSINOPHILS # (AUTO) 0.3 10^3/uL (0.0-0.7); EOSINOPHILS % (AUTO) 3.1 %; HCT - HEMATOCRIT 28.2 % (42.0-52.0); HGB - HEMOGLOBIN 8.6 g/dL (14.0-18.0); LYMPHOCYTES # (AUTO) 2.2 10^3/uL (1.5-3.5); LYMPHOCYTES % (AUTO) 23.9 %; MEAN CORPUSCULAR HEMOGLOBIN 28.3 pg (27.0-31.0); MEAN CORPUSCULAR HGB CONC 30.5 g/dL (32.0-36.0); MEAN CORPUSCULAR VOLUME 92.8 fL (80.0-94.0); MEAN PLATELET VOLUME 9.9 fL (7.4-11.4); MONOCYTES # (AUTO) 1.2 10^3/uL (0.0-1.0); MONOCYTES % (AUTO) 13.3 %; NEUTROPHILS # (AUTO) 5.4 10^3/uL (1.5-6.6); PLT - PLATELET COUNT 237 10^3/uL (130-450); RED BLOOD COUNT 3.04 10^6/uL (4.70-6.10); RED CELL DISTRIBUTION WIDTH 16.2 % (12.0-15.0); WHITE BLOOD COUNT 9.1 x10^3/uL (4.8-10.8)
[2023-06-22 05:13] LABS: CALCIUM, IONIZED 1.05 mmol/L (1.15-1.33); VBG PH 7.413 (7.31-7.41)
[2023-06-22 05:18] LABS: CALCIUM 7.9 mg/dL (8.5-10.3); CREATININE 1.3 mg/dL (0.6-1.3); MAGNESIUM 1.9 mg/dL (1.7-2.3); PHOSPHORUS 3.3 mg/dL (2.5-5.0); POTASSIUM 4.6 mmol/L (3.5-4.5)
[2023-06-22] MEDS: ACETAMINOPHEN 325 MG TABLET PO SCH ×3 (06:27→12:09)
[2023-06-22] MEDS: GABAPENTIN 100 MG CAPSULE PO SCH (06:27)
[2023-06-22] MEDS: CALCIUM CARBONATE CHEW 500 MG TABLET PO SCH ×2 (06:28→09:19)
[2023-06-22] MEDS: LIDOCAINE PATCH 4% TOP SCH (08:11)
[2023-06-22] MEDS: FAMOTIDINE 20 MG/2 ML VIAL IVP SCH (08:11)
[2023-06-22] MEDS ORDERED: polyethylene glycoL 3350 17 GM PACKET PO SCH (09:00)
--- NOTE | 2023-06-22 09:02 | XRAY Report ---
PROCEDURE: Chest 1V INDICATIONS: FU right hemopneumothorax TECHNIQUE: One view of the chest was acquired. COMPARISON: None. FINDINGS: Surgical changes and devices: None. Lungs and pleura: Small right pleural effusion, unchanged. Increased pulmonary vascularity. No pneum othorax. Mediastinum: Mediastinal contours appear normal. Heart size is moderately enlarged. Bones and chest wall: Right inferior fractures are noted. There is a right shoulder prosthesis. No s uspicious bony lesions. Overlying soft tissues appear unremarkable. IMPRESSION: 1. Small right pleural effusion appears unchanged. 2. Mild cardiomegaly and increased pulmonary vascularity suggesting mild CHF. 3. Right inferior rib fractures are noted. Reviewed by: Jerome Gutierrez MD on 06/22/2023 9:00 AM PST Approved by: Jerome Gutierrez MD on 06/22/2023 9:00 AM [facility] Station ID: [id number]
--- NOTE | 2023-06-22 09:34 | PROVIDER PROGRESS NOTE ---
Subjective - General Admit Date: 06/21/23 - Other Other Information/Narrative: General Surgery Morning Rounds Note Hospital Day 2 - Multiple right rib fractures with small right hemopneumothorax Assessment: 1) Multiple right rib fractures - pain under good control and no SOB or respiratory compromise 2) Small right pleural effusion/residual hemothorax 3) Resolved left pneumothorax 4) Mild anemia due to #1 5) Constipation Plan: 1) Miralax 2) Discharge to home on Tylenol and Ibuprofen later today 3) Follow-up Urology [facility] per their plans to manage his right nephrolithiasis S: Slept well; minimal chest pain and only with movement; No SOB; No BM yet O: VSS; Lungs clear; Heart A fib; Abdomen soft; Right chest wall with palpable tenderness - less than yesterday; no bruising Pain Level: 1-3 ("None (0)","Mild (1-3)","Moderate (4-6)","Severe (7-10)") Labs: See attached Image: Dre Guerra MD, [facility] General Surgery Service [phone] Objective - Patient Data Vital Signs: Vital Signs x48h Temp Pulse Resp BP Pulse Ox 06/22/23 08:05 98.0 F 90 19 118/87 H 96 06/22/23 07:00 104 H 11 L 124/81 H 95 06/22/23 06:30 94 19 138/92 H 94 06/22/23 05:00 98 13 139/101 H 95 06/22/23 04:00 97.9 F 90 15 105/92 H 93 06/22/23 03:39 97.9 F 92 18 127/81 H 94 06/22/23 02:00 98 14 138/95 H 95 Weight: Weight 06/20/23 06/21/23 06/22/23 23:59 23:59 23:59 Weight (kg) 87.3 kg 82.5 kg 84.5 kg Intake & Output: Intake and Output Totals x24h 06/20/23 06/21/23 06/22/23 23:59 23:59 23:59 Intake Total 1947.5 200 Output Total 500 775 Balance 1447.5 -575 - Lab Results Lab Results: 06/22/23 04:43 06/22/23 04:43 Other Lab Results: Lab Results x24hrs 06/22/23 06/22/23 06/22/23 Range/Units 04:43 04:43 04:43 WBC 9.1 (4.8-10.8) x10^3/uL RBC 3.04 L (4.70-6.10) 10^6/uL Hgb 8.6 L (14.0-18.0) g/dL Hct 28.2 L (42.0-52.0) % MCV 92.8 (80.0-94.0) fL MCH 28.3 (27.0-31.0) pg MCHC 30.5 L (32.0-36.0) g/dL RDW 16.2 H (12.0-15.0) % Plt Count 237 (130-450) 10^3/uL MPV 9.9 (7.4-11.4) fL Neut # (Auto) 5.4 (1.5-6.6) 10^3/uL Lymph # (Auto) 2.2 (1.5-3.5) 10^3/uL Power # (Auto) 1.2 H (0.0-1.0) 10^3/uL Eos # (Auto) 0.3 (0.0-0.7) 10^3/uL Baso # (Auto) 0.1 (0.0-0.1) 10^3/uL Absolute Nucleated RBC 0.00 x10^3/uL Nucleated RBC % 0.0 /100WBC VBG pH 7.413 H (7.31-7.41) Ionized Calcium 1.05 L (1.15-1.33) mmol/L Sodium 136 (135-145) mmol/L Potassium 4.6 H (3.5-4.5) mmol/L Chloride 110 (101-111) mmol/L Carbon Dioxide 23 (21-32) mmol/L Anion Gap 3.0 L (6-13) BUN 31 H (6-20) mg/dL Creatinine 1.3 (0.6-1.3) mg/dL Estimated GFR (MDRD) 52 L (>89) Glucose 86 (74-104) mg/dL Calcium 7.9 L (8.5-10.3) mg/dL Phosphorus 3.3 (2.5-5.0) mg/dL Magnesium 1.9 (1.7-2.3) mg/dL Nasal Screen MRSA (PCR) (NEGATIVE) 06/21/23 Range/Units 09:00 WBC (4.8-10.8) x10^3/uL RBC (4.70-6.10) 10^6/uL Hgb (14.0-18.0) g/dL Hct (42.0-52.0) % MCV (80.0-94.0) fL MCH (27.0-31.0) pg MCHC (32.0-36.0) g/dL RDW (12.0-15.0) % Plt Count (130-450) 10^3/uL MPV (7.4-11.4) fL Neut # (Auto) (1.5-6.6) 10^3/uL Lymph # (Auto) (1.5-3.5) 10^3/uL Power # (Auto) (0.0-1.0) 10^3/uL Eos # (Auto) (0.0-0.7) 10^3/uL Baso # (Auto) (0.0-0.1) 10^3/uL Absolute Nucleated RBC x10^3/uL Nucleated RBC % /100WBC VBG pH (7.31-7.41) Ionized Calcium (1.15-1.33) mmol/L Sodium (135-145) mmol/L Potassium (3.5-4.5) mmol/L Chloride (101-111) mmol/L Carbon Dioxide (21-32) mmol/L Anion Gap (6-13) BUN (6-20) mg/dL Creatinine (0.6-1.3) mg/dL Estimated GFR (MDRD) (>89) Glucose (74-104) mg/dL Calcium (8.5-10.3) mg/dL Phosphorus (2.5-5.0) mg/dL Magnesium (1.7-2.3) mg/dL Nasal Screen MRSA (PCR) NEGATIVE (NEGATIVE) - Current Medications Current Medications: Current Medications Generic Name Dose Route Start Last Admin Trade Name Freq PRN Reason Stop Dose Admin Acetaminophen 650 mg 06/21/23 12:00 06/22/23 06:27 Acetaminophen 325 Mg Tablet PO 650 mg Q6HR LUIS E Administration Calcium Carbonate/Glycine 1,250 mg 06/22/23 06:00 06/22/23 09:19 Calcium Carbonate Chew 500 Mg Tablet PO 06/22/23 10:01 1,250 mg Q4H LUIS E Administration Protocol Famotidine 20 mg 06/21/23 09:00 06/22/23 08:11 Famotidine 20 Mg/2 Ml Vial IVP 20 mg BID LUIS E Administration Gabapentin 100 mg 06/21/23 14:00 06/22/23 06:27 Gabapentin 100 Mg Capsule PO 100 mg TID LUIS E Administration Lactated Ringer's 1,000 mls @ 75 mls/hr 06/21/23 08:00 06/21/23 22:42 Lr IV 75 mls/hr .[id number] LUIS E Administration Lidocaine 1 patch 06/21/23 09:00 06/22/23 08:11 Lidocaine Patch 4% TOP 1 patch BID LUIS E Administration Oxycodone HCl 5 mg 06/21/23 07:57 06/21/23 19:58 Oxycodone 5 Mg Tablet PO 5 mg Q4HR PRN Administration Pain 8 to 10 Polyethylene Glycol 17 gm 06/22/23 09:00 06/22/23 09:20 Polyethylene Glycol 3350 17 Gm Packet PO 17 gm DAILY LUIS E Administration Sodium Chloride 10 ml 06/21/23 09:00 06/22/23 08:11 Sodium Chloride Flush 0.9% 10 Ml Syringe IVP 10 ml 0100,0900,1700 LUIS E Administration Sodium Chloride 10 ml 06/21/23 07:57 06/21/23 21:34 Sodium Chloride Flush 0.9% 10 Ml Syringe IVP 10 ml PRN PRN Administration NEEDED PER PROVIDER ORDERS
[2023-06-22] MEDS ORDERED: FAMOTIDINE 20 MG/2 ML VIAL IVP SCH (10:20)
--- NOTE | 2023-06-22 11:21 | XRAY Report ---
PROCEDURE: Chest 1V INDICATIONS: Follow up right hemopneumothorax TECHNIQUE: One view of the chest was acquired. COMPARISON: X-ray chest June 21, 2023 at 3:45 AM FINDINGS: Surgical changes and devices: Bilateral shoulder arthroplasty hardware is noted. EKG leads project o jeri the patient's chest.. Lungs and pleura: Curly B-lines indicating pulmonary fluid overload. Bibasilar atelectatic changes. No pneumothorax or large pleural effusion seen. Mediastinum: The cardiac silhouette is slightly enlarged, unchanged. Bones and chest wall: Orthopedic shoulder arthroplasty hardware is partially visualized as noted abo ve. IMPRESSION: 1. Suggestion of mild pulmonary fluid overload 2. Mild enlargement of the cardiac silhouette Reviewed by: Abe Pham MD on 06/21/2023 8:59 AM PST Approved by: Abe Pham MD on 06/21/2023 8:59 AM PST Station ID: [id number]
--- NOTE | 2023-06-22 12:18 | DISCHARGE SUMMARY ---
"Discharge Summary Admit Date: 06/21/23 Discharge Date: 06/22/23 Discharging Provider: Mari Condition at Discharge: Good Discharge Disposition: 01 Home, Self Care - DIAGNOSES Admission Diagnoses: Multiple (5,6,7,8) right rib fractures with associated small apical pneumothorax and small hemothorax from GLF Syncopal episode Discharge Diagnoses with Status of Each Condition: Multiple right rib fractures - stable; good pain control with oral analgesics Right apical pneumothorax - resolved without intervention Right hemothorax - resolving without intervention Syncopal episode - transient due to hypovolemia - HPI History of Present Illness: Floyd is an 87 year old male who underwent an attempt at lithotripsy of a right kidney stone at [facility] yesterday. He stopped his Eliquis 4 days prior to that procedure. He was discharged at around 1100 and last evening while walking in his home he had a syncopal episode that caused him to fall to the ground onto his left side. It was unwitnessed and he does not remember falling. His heard him fall and called for an ambulance that brought him to our ED. He has been hemodynamically stable since admission and CT/CXR workup identified 3 right rib fractures with a tiny tight hemopneumothorax. Troponins were obtained and are elevated and his cardiac rhythm demonstrates atrial fibrillation with a normal rate. I was asked by the ED physician to assist in Floyd's evaluation and management. Floyd and his live in [place] and their entire care team is at [facility]. [place]. He denies SOB and only has mild right sided chest pain with deep inspiration. he has been given IV morphine in the ED to control his chest wall discomfort. - CONSULTS | PROCEDURES Consultations: Medical Hospitalist Procedures: None - HOSPITAL COURSE Hospital Course: Admitted to ICU and started on multimodality analgesic protocol. No respiratory issues and minimal pain associated with rib fractures. No telemetry evidence of DE or abnormal arrhythmia other than his baseline atrial fibrillation. Tolerating a diet. Ambulatory. 1,500 - 2,500 on IS with ease. Discharged on oral Tylenol 650 mg PO Q 6 hrs for next 3 days and oral Oxycodone, 5mg PO q4 hrs prn (#7) as well as Miralax as needed. He is to contact his Urology service regarding restarting his Eliquis as they have him scheduled for a nephrostomy tube placement soon. Follow-up with his PCP in a month to monitor rib fracture healing and his Urology team as previously arranged. I gave him a written Rx for the Oxycodone per their request. - ALLERGIES Allergies/Adverse Reactions: Allergies Allergy/AdvReac Type Severity Reaction Status Date / Time No Known Drug Allergies Allergy Verified 06/20/23 23:02 - MEDICATIONS Home Medications: Ambulatory Orders Medication Instructions Recorded Confirmed Apixaban [Eliquis] 2.5 mg PO BID 01/05/18 06/21/23 Terazosin [Hytrin] 5 mg PO QPM 01/05/18 06/21/23 Verapamil [Calan] 80 mg PO QPM 01/05/18 06/21/23 Calcium Carbonate [Tums (Calcium 1,000 mg PO DAILY 06/21/23 06/21/23 Carbonate 500mg)] Finasteride [Proscar] 5 mg PO DAILY 06/21/23 06/21/23 ursodioL [Actigall] 600 mg PO BID 06/21/23 06/21/23 - PHYSICAL EXAM AT DISCHARGE General Appearance: positive: No acute distress, Alert Eyes Bilateral: positive: PERRL ENT: positive: Pharynx nml Neck: positive: Nml inspection Respiratory: positive: Other (Tender right lateral rib cage. No flail, crepitat ion, or rib mobility) Cardiovascular: positive: Irregularly irregular Peripheral Pulses: positive: 2+ Abdomen: positive: Non-tender Skin: positive: Color nml Extremities: positive: Nml appearance Neurologic/Psychiatric: positive: Oriented x3 - LABS Result Diagrams: 06/22/23 04:43 06/22/23 04:43 - DIAGNOSTIC IMAGING Diagnostic Imaging Results: See rad report - QUALITY (Female Hip Fx Only) Was patient sent home on osteoporosis medication?: No - FOLLOW UP Follow Up: Urology team as previously scheduled PCP in 3-5 weeks to assess rib fracture healing - TIME SPENT Time Spent in Discharge (Minutes): 30"
--- NOTE | 2023-06-22 12:30 | Discharge Plan ---
Discharge Plan Problem Reviewed?: Yes Disposition: Home, Self Care Condition: Good Diet: Regular Activity Restrictions: Activity as Tolerated Shower Restrictions: No Driving Restrictions: No Instruction Topics: ED Fx Rib, Fx Rib Plan of Treatment: At home: Diet as tolerated Activity as tolerated but avoid activity that causes right chest wall pain Use Incentive spirometry 2-3 x per hour next several days to diminish the risk of developing pneumonia Use all usual medications except hold Eliquis until you discuss with your Urology team regarding upcoming procedure Tylenol for mild discomfort; Oxycodone for severe discomfort Metamucil and Miralax for constipation FU PCP in 3-5 weeks to asses rib fracture healing. Dre Guerra MD, FACS General Surgery Service [facility] No Smoking: If you smoke, Please STOP! Call for help.
[2023-06-22 12:42] VITALS: BP 99/57; O2SAT 94
== END 2023-06-22 12:45 | disposition home or self-care (01) ==
LOC: EDUNIT# → ED 22:45 → ICU 06-21 07:57
PROVIDERS: ADMIT Surgery; ATTEND Surgery
DX: S22.41XA Multiple fractures of ribs, right side, initial encounter for closed fracture (principal); S27.2XXA Traumatic hemopneumothorax, initial encounter; W18.30XA Fall on same level, unspecified, initial encounter; Y92.002 Bathroom of unspecified non-institutional (private) residence as the place of occurrence of the external cause; E86.1 Hypovolemia; R55 Syncope and collapse; I48.91 Unspecified atrial fibrillation; Z79.01 Long term (current) use of anticoagulants; R79.89 Other specified abnormal findings of blood chemistry; Z98.890 Other specified postprocedural states; I10 Essential (primary) hypertension; D89.89 Other specified disorders involving the immune mechanism, not elsewhere classified; J90 Pleural effusion, not elsewhere classified; D64.9 Anemia, unspecified; K59.00 Constipation, unspecified
CPT/HCPCS: 36415; 71045; 71101; 71250; 74177; 80048; 80053; 82330; 83690; 83735; 84100; 84484; 85025; 87150; 93005; 96361; 96374; 96375; 96376; 99285; A9270; G0378; J7120; Q9967

== ENCOUNTER 2023-06-29 19:40 | Inpatient (IN) | payer MEDICARE, OTHER ==
[2023-06-29 20:34] LABS: BASOPHILS % (AUTO) 0.4 %; EOSINOPHILS % (AUTO) 0.4 %; HGB - HEMOGLOBIN 8.2 g/dL (14.0-18.0); LYMPHOCYTES # (AUTO) 1.8 10^3/uL (1.5-3.5); LYMPHOCYTES % (AUTO) 16.5 %; MEAN CORPUSCULAR HEMOGLOBIN 28.6 pg (27.0-31.0); MEAN CORPUSCULAR HGB CONC 30.4 g/dL (32.0-36.0); MEAN CORPUSCULAR VOLUME 94.1 fL (80.0-94.0); MEAN PLATELET VOLUME 9.4 fL (7.4-11.4); MONOCYTES # (AUTO) 0.6 10^3/uL (0.0-1.0); MONOCYTES % (AUTO) 5.2 %; NEUTROPHILS # (AUTO) 8.6 10^3/uL (1.5-6.6); PLT - PLATELET COUNT 309 10^3/uL (130-450); RED BLOOD COUNT 2.87 10^6/uL (4.70-6.10); RED CELL DISTRIBUTION WIDTH 15.9 % (12.0-15.0); WHITE BLOOD COUNT 11.2 x10^3/uL (4.8-10.8)
--- NOTE | 2023-06-29 20:56 | ED Physician Documentation ---
History of Present Illness - Stated complaint Stated Complaint: GI,N/V - Chief complaint Chief Complaint: General - History obtained from History obtained from: Patient - Additonal information Additional information: 87yM with pmh crf, primary biliary cirrhosis, afib on eliquis, diverticulosis, prior gib, recent failed lithotripsy for renal stone, admission 06/21-06/22 for syncope and collapse resulting in 4 acute rib fractures and 10% hydropneumothorax, p/w black tinged vomitus today and dark tarry stools. denies abdominal pain. states he has been unable to tolerate any po including water or pills for past 2-3 days and has been very weak. PD PAST MEDICAL HISTORY - Past Medical History Cardiovascular: Hypertension, Atrial flutter Neuro: Peripheral neuropathy : Kidney stones Musculoskeletal: Osteoarthritis - Past Surgical History Past Surgical History: Yes Ortho: Knee replacement, Shoulder arthroplasty - Present Medications Home Medications: Ambulatory Orders Medication Instructions Recorded Confirmed Apixaban [Eliquis] 2.5 mg PO BID 01/05/18 06/21/23 Terazosin [Hytrin] 5 mg PO QPM 01/05/18 06/21/23 Verapamil [Calan] 80 mg PO QPM /07/2406/21/23 Calcium Carbonate [Tums (Calcium 1,000 mg PO DAILY 06/21/23 06/21/23 Carbonate 500mg)] Finasteride [Proscar] 5 mg PO DAILY 06/21/23 06/21/23 ursodioL [Actigall] 600 mg PO BID 06/21/23 06/21/23 - Allergies Allergies/Adverse Reactions: Allergies Allergy/AdvReac Type Severity Reaction Status Date / Time No Known Drug Allergies Allergy Verified 06/29/23 20:35 - Social History Does the pt smoke?: No Smoking Status: Former smoker Does the pt drink ETOH?: Yes Does the pt have substance abuse?: No PD ED PE NORMAL - Vitals Vital signs reviewed: Yes - General General: Alert and oriented X 3, No acute distress, Other (elderly appearing) - HEENT HEENT: Atraumatic, PERRL, EOMI, Moist mucous membranes, Pharynx benign - Neck Neck: Supple, no meningeal sign - Cardiac Cardiac: Other (irregular rhythm, regular rate) - Respiratory Respiratory: No respiratory distress, Clear bilaterally - Abdomen Abdomen: Non tender, Non distended - Rectal Rectal: Other (external anal exam with visible external nonthrombosed hemorrhoid. CRISTHIAN with mucous appearing fluid, but no palpable stool.) - Derm Derm: Warm and dry, Other (pale appearing) Results - Vitals Vitals: Vital Signs - 24 hr 06/29/23 06/29/23 19:47 20:01 Temperature 36.6 C Heart Rate 57 L Respiratory 18 18 Rate Blood Pressure 97/65 O2 Saturation 97 Oxygen O2 Source Room air - EKG (time done) 4 EKG releavant findings:: EKG personally interpreted by author of this note. Relevant findings are: Rate: Rate (enter#) (121) Rhythm: Atrial fibrillation - Labs Labs: Laboratory Tests 06/29/23 06/29/23 20:29 20:29 WBC 11.2 H RBC 2.87 L Hgb 8.2 L Hct 27.0 L MCV 94.1 H MCH 28.6 MCHC 30.4 L RDW 15.9 H Plt Count 309 MPV 9.4 Neut # (Auto) 8.6 H Lymph # (Auto) 1.8 [place] # (Auto) 0.6 Eos # (Auto) 0.0 Baso # (Auto) 0.0 Absolute Nucleated RBC 0.00 Nucleated RBC % 0.0 Sodium 139 Potassium 4.7 H Chloride 109 Carbon Dioxide 22 Anion Gap 8.0 BUN 47 H Creatinine 1.2 Estimated GFR (MDRD) 57 L Glucose 137 H Calcium 7.9 L Total Bilirubin 0.6 AST 23 ALT 11 Alkaline Phosphatase 117 Total Protein 6.6 Albumin 3.2 Globulin 3.4 Albumin/Globulin Ratio 0.9 L Lipase 42 PD Medical Decision Making - ED course ED course: 87yM with recent traumatic 10% hydropneumothorax s/p syncope and collapse last week p/w dark tarry stool and black streaked n/v X 1 day, found to have anemia with hb 8.3 (down from 9.0 last week on 06/21). also with borderline low BP 97/65, with comparative SBPs in 150s/160s last week. d/w Dr. Perea, surgeon lathe operator contact lens who recommends admit medicine and she will c/s in tomorrow for likely endoscopy. will d/w telehealth for admission Departure - Departure Disposition: 66 [facility] DC/Xfer Clinical Impression: Anemia, Dizziness, Decreased oral intake Condition: Fair Forms: PCP List
[2023-06-29] MEDS ORDERED: ONDANSETRON 4 MG/2 ML VIAL IVP STA (21:07)
[2023-06-29] MEDS ORDERED: SODIUM CHLORIDE 0.9% 500 ML IV ONE (21:07)
[2023-06-29 21:08] LABS: ALBUMIN 3.2 g/dL (3.2-5.5); ALBUMIN/GLOBULIN RATIO 0.9 (1.0-2.2); BILIRUBIN,TOTAL 0.6 mg/dL (0.2-1.0); CALCIUM 7.9 mg/dL (8.5-10.3); CREATININE 1.2 mg/dL (0.6-1.3); POTASSIUM 4.7 mmol/L (3.5-4.5); TOTAL PROTEIN 6.6 g/dL (6.4-8.9)
[2023-06-29] MEDS ORDERED: PANTOPRAZOLE 80 MG in SODIUM CHLORIDE 0.9% 100ML 100 ML IV STA (21:47)
[2023-06-29] MEDS ORDERED: PANTOPRAZOLE 40 MG VIAL IVP STA (21:47)
[2023-06-29] MEDS ORDERED: PANTOPRAZOLE 40 MG VIAL ONE (21:58)
--- NOTE | 2023-06-29 22:58 | HISTORY & PHYSICAL EXAMINATION ---
Chief Complaint - Chief Complaint Chief Complaint: coffee ground emesis, melena History of Present Illness - Admitted From Admitted From:: home - History Obtained From Exam Limitations: telemedicine - History of Present Illness HPI Comment/Other: Mr Spivey is an 87 yo M with hx CHF, primary biliary cirrhosis, A fib on Eliquis, diverticulosis, recent failed lithotripsy for nephrolithiasis. Patient was admitted last week 06/21-06/22 for syncope and collapse resulting in acute rib fractures and 10% hydropneumothorax, conservative management. Presents to the ER today with c/o coffee ground emesis, dark tarry stools. Onset today, around 11 am, approx 2 dark tarry stools, vomited 3-4 times. Poor PO intake and weak for the past 2-3 days. He did have breakfast this morning. He does have chest discomfort from the rib fractures, approx 3-4/10 now laying down, worse with activity. Denies fevers/chills, denies sob/cough. Denies prior history of GI bleed. He had a colonoscopy ~4 years, no abnormal findings per patient. Denies NSAIDs. Takes Eliquis twice daily as prescribed. His is at bedside. History - Past Medical History Cardiovascular: reports: Hypertension, Atrial fibrillation Neuro: reports: Peripheral neuropathy GI: reports: Other (primary biliary cirrhosis ) : reports: Kidney stones Musculoskeletal: reports: Osteoarthritis MRSA Hx?: No - Past Surgical History Ortho: reports: Knee replacement, Shoulder arthroplasty Meds/Allgy - Home Medications Home Medications: Ambulatory Orders Medication Instructions Recorded Confirmed Apixaban [Eliquis] 2.5 mg PO BID 01/05/18 06/21/23 Terazosin [Hytrin] 5 mg PO QPM 01/05/18 06/21/23 Verapamil [Calan] 80 mg PO QPM 01/05/18 06/21/23 Calcium Carbonate [Tums (Calcium 1,000 mg PO DAILY 06/21/23 06/21/23 Carbonate 500mg)] Finasteride [Proscar] 5 mg PO DAILY 06/21/23 06/21/23 ursodioL [Actigall] 600 mg PO BID 06/21/23 06/21/23 - Allergies Allergies/Adverse Reactions: Allergies Allergy/AdvReac Type Severity Reaction Status Date / Time No Known Drug Allergies Allergy Verified 06/29/23 20:35 Review of Systems - Constitutional Constitutional: reports: Fatigue, Weakness, Poor appetite. denies: Fever, Chills - Eyes Eyes: denies: Pain - Ears, Nose & Throat Ears, Nose & Throat: denies: Ear pain, Hearing loss - Cardiovascular Cariovascular: reports: Chest pain (discomfort 2/2 rib fractures). denies: Irregular heart rate, Palpitations - Respiratory Respiratory: denies: Cough, Sputum production, Wheezing, SOB at rest - Gastrointestinal Gastrointestinal: reports: Black stools, Coffee grounds emesis, Poor appetite. denies: Abdominal pain, Bloody stools, Kadeem blood emesis - Genitourinary Genitourinary: denies: Dysuria - Musculoskeletal Musculoskeletal: denies: Muscle pain, Back pain - Integumentary Integumentary: denies: Rash, Pruritis - Neurological Neurological: denies: Focal weakness, Headache, Dizziness - All Other Systems All Other Systems: reports: Reviewed and negative Exam - Vital Signs Reviewed Vital Signs: Yes Vital Signs: Vital Signs x48h Temp Pulse Resp BP Pulse Ox 06/29/23 20:01 18 06/29/23 19:47 36.6 C 57 L 18 97/65 97 - Physical Exam General Appearance: positive: No acute distress Eyes Bilateral: positive: Normal inspection ENT: positive: ENT inspection nml Neck: positive: Nml inspection Respiratory: positive: No respiratory distress Skin: positive: Color nml, No rash Neurologic/Psychiatric: positive: Oriented x3 Conclusion/Plan - Lab Results Lab results reviewed: Yes Fish Bones: 06/29/23 20:29 06/29/23 20:29 - Other Other Results/Comments: Assessment/Plan: Acute blood loss anemia secondary to GI bleed -Patient presents with c/o coffee ground emesis, melena, onset today -Hgb 8.2 (Hgb 9.0 on labs last week) -ER physician consulted gen surg - plan for endoscopy in a.m. -NPO -Gentle IV fluids overnight for hydration -Trend H&H Hx A fib on Eliquis -Hold Eliquis for tonight -Further assessment regarding risk/benefit for anticoagulation pending endoscopy findings BPH -Continue home meds Primary biliary cirrhosis -Continue home meds Recent rib fractures -Pain control DVT ppx: SCDs Full code Telemedicine Consult Details - Provider Location & Consult Time Telemedicine consultation conducted via videoconferencing?: Yes List names and roles of persons who participated in consult:: Dr Boyd, patient and his Telemedicine provider location:: [place] [facility] [place]
[2023-06-29] MEDS ORDERED: ONDANSETRON 4 MG/2 ML VIAL IVP PRN (23:20)
[2023-06-29] MEDS ORDERED: MORPHINE 2 MG/ML CARPUJECT IVP PRN (23:20)
[2023-06-29] MEDS ORDERED: SODIUM CHLORIDE FLUSH 0.9% 10 ML SYRINGE IVP PRN (23:20)
[2023-06-30 00:34] LABS: BILIRUBIN,URINE NEGATIVE (NEGATIVE); GLUCOSE, URINE (UA) NEGATIVE (NEGATIVE); KETONES,URINE (UA) TRACE mg/dL (NEGATIVE); LEUKOCYTE ESTERASE, URINE NEGATIVE (NEGATIVE); NITRITE,URINE NEGATIVE (NEGATIVE); OCCULT BLOOD,URINE TRACE-INTA (NEGATIVE); PROTEIN,URINE TRACE mg/dL (NEGATIVE); UROBILINOGEN,URINE 0.2 (NORMAL) E.U./dL (NORMAL)
[2023-06-30] MEDS: SODIUM CHLORIDE 0.9% 1,000 ML IV SCH ×3 (00:40→15:58)
[2023-06-30 00:45] LABS: CLARITY,URINE CLEAR (CLEAR)
[2023-06-30] MEDS: SODIUM CHLORIDE FLUSH 0.9% 10 ML SYRINGE IVP SCH ×4 (00:50→23:51)
[2023-06-30 01:33] LABS: HCT - HEMATOCRIT 25.3 % (42.0-52.0); HGB - HEMOGLOBIN 7.5 g/dL (14.0-18.0)
[2023-06-30] MEDS: ACETAMINOPHEN 325 MG TABLET PO PRN ×2 (04:18→21:59)
[2023-06-30] MEDS ORDERED: VERAPAMIL 80 MG PO SCH ×2 (04:44→21:00)
[2023-06-30 05:59] LABS: BASOPHILS % (AUTO) 0.2 %; HCT - HEMATOCRIT 21.4 % (42.0-52.0); LYMPHOCYTES # (AUTO) 2.1 10^3/uL (1.5-3.5); LYMPHOCYTES % (AUTO) 19.8 %; MEAN CORPUSCULAR HEMOGLOBIN 28.3 pg (27.0-31.0); MEAN CORPUSCULAR HGB CONC 30.4 g/dL (32.0-36.0); MEAN PLATELET VOLUME 9.4 fL (7.4-11.4); MONOCYTES # (AUTO) 1.1 10^3/uL (0.0-1.0); MONOCYTES % (AUTO) 9.8 %; NEUTROPHILS # (AUTO) 7.5 10^3/uL (1.5-6.6); NEUTROPHILS % (AUTO) 69.5 %; PLT - PLATELET COUNT 240 10^3/uL (130-450); RED CELL DISTRIBUTION WIDTH 16.2 % (12.0-15.0); WHITE BLOOD COUNT 10.8 x10^3/uL (4.8-10.8)
[2023-06-30 06:07] LABS: HGB - HEMOGLOBIN 6.5 g/dL (14.0-18.0)
[2023-06-30 06:15] LABS: CALCIUM 7.2 mg/dL (8.5-10.3); CREATININE 1.2 mg/dL (0.6-1.3)
--- NOTE | 2023-06-30 06:27 | PROVIDER PROGRESS NOTE ---
Communications Specialist Note - Communications Specialist Note Communications Specialist Note: Cross Cover Hgb 6.5 2 U PRBC ordered - d/w RN to obtain consent for transfusion.
[2023-06-30] MEDS ORDERED: METOPROLOL 5 MG/5 ML VIAL IVP SCH (07:00)
--- NOTE | 2023-06-30 07:16 | CONSULTATION NOTE ---
Referring Provider Name of Referring Provider:: ED/Medicine Consult Date: 06/30/23 Chief Complaint - Chief Complaint Chief Complaint: gi bleed History of Present Illness - Admitted From Admitted From:: ED - History Obtained From Records Reviewed: yes History obtained from: patient, ED provider, chart - History of Present Illness HPI Comment/Other: Patient is an 87 y/o M who has had several recent hospital interactions. On 06/20, he underwent attempted lithotripsy of a right kidney stone at [facility]. That evening, he had a ground level fall and broke several right sided ribs, requiring hospitalization at our facility for monitoring and pain control. Since discharge, he had been doing "ok," still struggling with some rib pain. He has noted a decreased appetite for the last couple of days, and yesterday had a couple of melanic stools and had three episodes of coffee ground emesis between 1000 and 1800, prompting him to return to the ED. He denies any abdominal pain or nausea at this time. He has been taking tylenol but no NSAIDs for pain. He is usually on Eliquis for atrial fibrillation but has not been taking this since before his lithotripsy, per his report. He denies any substernal chest pain or shortness of breath. He does not struggle with GERD, does not take any heartburn medications, and has never had an ulcer in the past. He is admitted to medicine service and I have been asked to consult for upper gi bleed. 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 Meds/Allgy - Home Medications Home Medications: Ambulatory Orders Medication Instructions Recorded Confirmed Terazosin [Hytrin] 5 mg PO QPM 01/05/18 06/30/23 Finasteride [Proscar] 5 mg PO DAILY 06/21/23 06/30/23 ursodioL [Actigall] 600 mg PO BID 06/21/23 06/30/23 Apixaban [Eliquis] 5 mg PO BID 06/30/23 06/30/23 Verapamil HCl [Verapamil ER] 240 mg PO QPM 06/30/23 06/30/23 - Allergies Allergies/Adverse Reactions: Allergies Allergy/AdvReac Type Severity Reaction Status Date / Time No Known Drug Allergies Allergy Verified 06/29/23 20:35 Review of Systems - Constitutional Constitutional: reports: Other (A complete 10 point review of symptoms is otherwise negative except for that noted in HPI and PMH.) Exam - Vital Signs Vital Signs: Vital Signs x48h Temp Pulse Pulse Resp BP BP Pulse Ox 06/30/23 06:57 122/83 H 06/30/23 06:52 118 H 112/78 06/30/23 06:49 100 17 126/71 96 06/30/23 06:46 112 H 127/71 06/30/23 06:38 131 H 128/85 H 06/30/23 06:37 128/85 H 06/30/23 06:29 135/90 H 06/30/23 03:59 36.7 C 136 H 19 144/81 H 96 06/30/23 00:39 36.8 C 110 H 20 143/92 H 95 - Physical Exam Comments/Other: GEN: No acute distress, appears younger than stated age, alert and oriented HEENT: NCAT, MMM, EOMI NEURO: CN II-XII grossly intact, no obvious focal deficits CV: Irregularly irregular rhythm, regular rate at the time of my exam PULM: Nonlabored, on room air ABD: soft, non tender even to deep palpation in the epigastric region, no rebound or guarding CIRCULATORY: no clubbing, cyanosis, or edema SKIN: no lesions appreciated LYMPH: no obvious lymphadenopathy MSK: 4/4 strength in all extremities PSYCH: Affect is appropriate Conclusion and Plan - Lab Results Laboratory Results 06/30/23 06:42: Crossmatch IS Only See Detail 06/30/23 05:39: Blood Type Recheck O POSITIVE 06/30/23 05:39: Sodium 140, Potassium 4.0, Chloride 112 H, Carbon Dioxide 22, Anion Gap 6.0, BUN 54 H, Creatinine 1.2, Estimated GFR (MDRD) 57 L, Glucose 120 H, Calcium 7.2 L 06/30/23 05:39: WBC 10.8, RBC 2.30 L, Hgb 6.5 L*, Hct 21.4 L, MCV 93.0, MCH 2 8.3, MCHC 30.4 L, RDW 16.2 H, Plt Count 240, MPV 9.4, Neut # (Auto) 7.5 H, Lymph # (Auto) 2.1, [place] # (Auto) 1.1 H, Eos # (Auto) 0.0, Baso # (Auto) 0.0, Absolute Nucleated RBC 0.00, Nucleated RBC % 0.0 06/30/23 01:13: Hgb 7.5 L, Hct 25.3 L 06/29/23 23:41: Urine Color YELLOW, Urine Clarity CLEAR, Urine pH 6.0, Ur Specific [place] 1.020, Urine Protein TRACE, Urine Glucose (UA) NEGATIVE, Urine Ketones TRACE, Urine Occult Blood TRACE-INTA, Urine Nitrite NEGATIVE, Urine Bilirubin NEGATIVE, Urine Urobilinogen 0.2 (NORMAL), Ur Leukocyte Esterase NEGAT LOLA, Ur Microscopic Review NOT INDICATED, Urine Culture Comments NOT INDICATED 06/29/23 20:29: Sodium 139, Potassium 4.7 H, Chloride 109, Carbon Dioxide 22, Anion Gap 8.0, BUN 47 H, Creatinine 1.2, Estimated GFR (MDRD) 57 L, Glucose 137 H, Calcium 7.9 L, Total Bilirubin 0.6, AST 23, ALT 11, Alkaline Phosphatase 117, Total Protein 6.6, Albumin 3.2, Globulin 3.4, Albumin/Globulin Ratio 0.9 L, Lipase 42 06/29/23 20:29: WBC 11.2 H, RBC 2.87 L, Hgb 8.2 L, Hct 27.0 L, MCV 94.1 H, MCH 28.6, MCHC 30.4 L, RDW 15.9 H, Plt Count 309, MPV 9.4, Neut # (Auto) 8.6 H, Lymph # (Auto) 1.8, [place] # (Auto) 0.6, Eos # (Auto) 0.0, Baso # (Auto) 0.0, Absolute Nucleated RBC 0.00, Nucleated RBC % 0.0 - Consultation Note Consultation Note: 87-year-old gentleman with: 1. Upper GI bleed with anemia Hemoglobin is trended to below 7 this morning, and transfusion has been ordered by the primary team Proton pump inhibitor drip to be stopped this morning, twice daily IV dosing has been shown to be as effective as a continuous drip. Plan for twice daily IV dosing moving forward until the patient is able to tolerate a diet and then transition to p.o. I discussed the risks, benefits, and alternatives of upper GI endoscopy with the patient this morning. These include but are not limited to bleeding and perforation. We discussed the the procedure can be diagnostic and therapeutic if active bleeding is identified. The patient voiced understanding, his questions were answered, and he wished to proceed. A consent was signed by the patient. He is not currently taking his Eliquis. He is not taking any NSAIDs or other blood thinning medications. He has had significant somatic stressors over the last 10 days. 2. Right rib fractures The patient is breathing well on room air He continues to have pain at his rib fracture site. I ordered a Lidoderm patch for him this morning. Recommend continuing Tylenol and narcotic pain medication as needed. 3. Right nephrolithiasis Attempted lithotripsy on 06/20/2023. Previous notes indicate that nephrostomy tube is planned in the future. Recommend continuing to follow the patient's creatinine closely 4. Atrial fibrillation The patient is on chronic anticoagulation with Eliquis but has not been taking this since prior to his lithotripsy Plan for EGD later today. I will continue to follow the patient closely. Thank you for consulting me in the care of this patient! 1300 Update: EGD demonstrated small, non bleeding ulcer in D1, duodenum. No stigmata of bleeding. Recommend continuing PPI. Ok to adat Follow hgb, when stable for 24 hours, ok to discharge from surgery standpoint. Surgery will continue to follow.
[2023-06-30] MEDS: FINASTERIDE 5 MG TABLET PO SCH (08:15)
[2023-06-30] MEDS: CALCIUM CARBONATE CHEW 500 MG TABLET PO SCH (08:31)
[2023-06-30] MEDS: LIDOCAINE PATCH 4% TOP SCH (08:37)
[2023-06-30] MEDS: PANTOPRAZOLE 40 MG VIAL IV SCH ×2 (11:04→20:22)
--- NOTE | 2023-06-30 11:05 | PHARMACY PROGRESS NOTE ---
- Best Possible Medication History Admit Date and Time: 06/29/23 7689 Processed by: Pharmacy Medication History completed: Yes Patient Interview: Completed Secondary Source(s): Written medication list, Prescription bottles, Spouse/Significant other, Pharmacy records, Insurance records As the person ultimately responsible for medication therapy, providers are able to order a medication from an existing home medication list in [facility] via the "Reconcile Routine" prior to Confirmation of that medication by aviation support equipment repairer. Such practice is discouraged except when the physician, in their clinical judgment, deems that a medical need exists for a medication without regard to previous use.
--- NOTE | 2023-06-30 11:53 | ANESTHESIA ---
Pre-Anesthesia VS, & Labs - Diagnosis Anemia, GI bleed - Procedure EGD Vital Signs: Temp Pulse Resp BP Pulse Ox O2 Flow Rate 36.6 C 83 17 123/72 94 06/30/23 11:28 06/30/23 11:28 06/30/23 11:28 06/30/23 11:28 06/30/23 11:28 Height: 5 ft 9 in Weight (kg): 79 kg Body Mass Index: 25.7 BMI Classification: Overweight - NPO >8 hours - Lab Results Current Lab Results: Laboratory Tests 06/30/23 06:42: Blood Type O POSITIVE, Antibody Screen NEGATIVE, Crossmatch IS Only See Detail 06/30/23 05:39: Blood Type Recheck O POSITIVE 06/30/23 05:39: Sodium 140, Potassium 4.0, Chloride 112 H, Carbon Dioxide 22, Anion Gap 6.0, BUN 54 H, Creatinine 1.2, Estimated GFR (MDRD) 57 L, Glucose 120 H, Calcium 7.2 L 06/30/23 05:39: WBC 10.8, RBC 2.30 L, Hgb 6.5 L*, Hct 21.4 L, MCV 93.0, MCH 28.3, MCHC 30.4 L, RDW 16.2 H, Plt Count 240, MPV 9.4, Neut # (Auto) 7.5 H, Lymph # (Auto) 2.1, [place] # (Auto) 1.1 H, Eos # (Auto) 0.0, Baso # (Auto) 0.0, Absolute Nucleated RBC 0.00, Nucleated RBC % 0.0 06/30/23 01:13: Hgb 7.5 L, Hct 25.3 L 06/29/23 20:29: Sodium 139, Potassium 4.7 H, Chloride 109, Carbon Dioxide 22, Anion Gap 8.0, BUN 47 H, Creatinine 1.2, Estimated GFR (MDRD) 57 L, Glucose 137 H, Calcium 7.9 L, Total Bilirubin 0.6, AST 23, ALT 11, Alkaline Phosphatase 117, Total Protein 6.6, Albumin 3.2, Globulin 3.4, Albumin/Globulin Ratio 0.9 L, Lipase 42 06/29/23 20:29: WBC 11.2 H, RBC 2.87 L, Hgb 8.2 L, Hct 27.0 L, MCV 94.1 H, MCH 28.6, MCHC 30.4 L, RDW 15.9 H, Plt Count 309, MPV 9.4, Neut # (Auto) 8.6 H, Lymph # (Auto) 1.8, [place] # (Auto) 0.6, Eos # (Auto) 0.0, Baso # (Auto) 0.0, Absolute Nucleated RBC 0.00, Nucleated RBC % 0.0 Lab results reviewed: Yes Fish Bones: 06/30/23 05:39 06/30/23 05:39 Home Medications and Allergies Home Medications: Ambulatory Orders Apixaban [Eliquis] 5 mg PO BID 06/30/23 Verapamil HCl [Verapamil ER] 240 mg PO QPM 06/30/23 Active Medications Acetaminophen (Acetaminophen 325 Mg Tablet) 650 mg PO Q4HR PRN PRN Reason: Pain 1 to 4, or Fever Last Admin: 06/30/23 04:18 Dose: 650 mg Calcium Carbonate/Glycine (Calcium Carbonate Chew 500 Mg Tablet) 1,[address] [facility] Last Admin: 06/30/23 08:31 Dose: 1,000 mg Diltiazem HCl (Diltiazem 60 Mg Tablet) [address] [facility] Last Admin: 06/30/23 10:42 Dose: Not Given Finasteride (Finasteride 5 Mg Tablet) [address] [facility] Last Admin: 06/30/23 08:15 Dose: 5 mg Sodium Chloride (Normal Saline 0.9%) 1,000 mls @ 100 mls/hr IV .Q10H [facility] Last Infusion: 06/30/23 08:16 Dose: 0 mls/hr Lidocaine (Lidocaine Patch 4%) [address] [facility] Last Admin: 06/30/23 08:37 Dose: 1 patch Morphine Sulfate (Morphine 2 Mg/Ml Carpuject) 1 mg IVP Q4H PRN PRN Reason: Pain 8 to 10 Last Admin: 06/30/23 00:49 Dose: 1 mg Ondansetron HCl (Ondansetron 4 Mg/2 Ml Vial) 4 mg IVP Q6HR PRN PRN Reason: Nausea / Vomiting Pantoprazole Sodium (Pantoprazole 40 Mg Vial) [address] [facility] Last Admin: 06/30/23 11:04 Dose: 40 mg Patient Own Med ( Ursodiol 300 Mg Capsule) [address] [facility] Sodium Chloride (Sodium Chloride Flush 0.9% 10 Ml Syringe) 10 ml IVP PRN PRN PRN Reason: NEEDED PER PROVIDER ORDERS Sodium Chloride (Sodium Chloride Flush 0.9% 10 Ml Syringe) 10 ml IVP 0100,0900,1700 [facility] Last Admin: 06/30/23 08:16 Dose: Not Given Terazosin HCl (Terazosin 1 Mg Capsule) [address] [facility] Terazosin [Hytrin] 5 mg PO QPM 01/05/18 Finasteride [Proscar] 5 mg PO DAILY 06/21/23 ursodioL [Actigall] 600 mg PO BID 06/21/23 Apixaban [Eliquis] 5 mg PO BID 06/30/23 Verapamil HCl [Verapamil ER] 240 mg PO QPM 06/30/23 Allergies/Adverse Reactions: Allergies Allergy/AdvReac Type Severity Reaction Status Date / Time No Known Drug Allergies Allergy Verified 06/29/23 20:35 Anes History & Medical History - Anesthetic History Anesthesia Complications: reports: No previous complications - Medical History Cardiovascular: reports: Hypertension, Atrial fibrillation Pulmonary: reports: None Gastrointestinal: reports: GI bleed, Other Urinary: reports: Kidney stones Neuro: reports: Peripheral neuropathy, Fainting Musculoskeletal: reports: Osteoarthritis Endocrine/Autoimmune: 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) Blood Disorders: reports: Anemia (see CBC) Skin: reports: None Smoking Status: Never smoker Psychosocial: reports: No issues indicated History of Cancer?: No - Surgical History Eyes Ears Nose Throat (EENT): reports: Cataracts Urologic: reports: Ureterolithotomy (stones) Orthopedic: reports: Knee replacement (right), Shoulder arthroplasty (bila teral), Spine surgery (partial fusion) Exam General: Alert, Oriented x3, Cooperative, No acute distress Dental: WNL Mouth Openin Fingerbreadth Neck Mobility: Normal Mallampati classification: II Thyromental Distance: 4-6 cm Mental/Cognitive Status: Alert/Oriented X3, Normal for patient Plan Anesthesia Type: General, Total IV Consent for Procedure(s) Verified and Reviewed: Yes Code Status: Attempt Resuscitation ASA classification: 3-Severe systemic disease Is this case an emergency?: No
[2023-06-30] MEDS ORDERED: PROPOFOL 500 MG/50 ML 500 MG/50 ML VIAL ONE (11:57)
--- NOTE | 2023-06-30 13:43 | PROVIDER PROGRESS NOTE ---
Assessment/Plan - Problem List (1) Duodenal ulcer Assessment/Plan: Patient presented with coffee ground emesis, melena He was started on Protonix drip, changed to Protonix iv BID this morning He had his EGD which showed a duodenal ulcer, not bleeding at the time. Plan: As per Gen Surg: will restart a diet, cont BID Protonix, follow Hgb (2) Acute blood loss anemia secondary to GI bleed At adm yesterday Hgb 8.2 (Hgb 9.0 on labs last week). This a.m. Hgb 6.5. Telemedicine Dr ordered 2 U PRBCs transfused this a.m. Plan: Trend Hgb, tranfuse if <7 As per Gen Surg: OK to discharge if Hgb stable for 24 hrs (3) A fib He is on Eliquis, which was put on hold Plan: Await Gen Surg input regarding resumption of DOAC, risk/benefit for anticoagulation (4) BPH Plan: Continue home meds (5) Primary biliary cirrhosis Plan: Continue home meds (6) Recent rib fractures Plan: Pain control with prn narcotics and Gen Surg added Lidoderm top patch - Current Meds Current Meds: Current Medications Generic Name Dose Route Start Last Admin Trade Name Freq PRN Reason Stop Dose Admin Acetaminophen 650 mg 06/29/23 23:20 06/30/23 04:18 Acetaminophen 325 Mg Tablet PO 650 mg Q4HR PRN Administration Pain 1 to 4, or Fever Calcium Carbonate/Glycine 1,000 mg 06/30/23 09:00 06/30/23 08:31 Calcium Carbonate Chew 500 Mg Tablet PO 1,000 mg DAILY [facility] Administration Diltiazem HCl 60 mg 06/30/23 09:06 06/30/23 10:42 Diltiazem 60 Mg Tablet PO Not Given Q6HR [facility] Finasteride 5 mg 06/30/23 09:00 06/30/23 08:15 Finasteride 5 Mg Tablet PO 5 mg DAILY [facility] Administration Sodium Chloride 1,000 mls @ 100 mls/hr 06/29/23 23:45 06/30/23 08:16 Normal Saline 0.9% IV 0 mls/hr .Q10H [facility] Infusion Lidocaine 1 patch 06/30/23 09:00 06/30/23 08:37 Lidocaine Patch 4% TOP 1 patch DAILY [facility] Administration Morphine Sulfate 1 mg 06/29/23 23:20 06/30/23 00:49 Morphine 2 Mg/Ml Carpuject IVP 1 mg Q4H PRN Administration Pain 8 to 10 Pantoprazole Sodium 40 mg 06/30/23 09:08 06/30/23 11:04 Pantoprazole 40 Mg Vial IV 40 mg BID [facility] Administration Sodium Chloride 10 ml 06/30/23 01:00 06/30/23 08:16 Sodium Chloride Flush 0.9% 10 Ml Syringe IVP Not Given 0100,0900,1700 [facility] - Lab Result Fish Bone Diagrams: 06/30/23 05:39 06/30/23 05:39 - Additional Planning My Orders: My Active Orders 06/30/23 09:06 diltiaZEM [Cardizem] 60 mg PO Q6HR 06/30/23 09:08 Pantoprazole [Protonix] 40 mg IV BID 06/30/23 Dinner DIET [Soft Mechanical Diet] [DIET] 06/30/23 18:00 HGB - HEMOGLOBIN [HEME] Timed 07/01/23 05:00 CBC W/O DIFF (HEMOGRAM) [HEME] DAILYLAB Subjective - Subjective Patient Reports: Other (Lethargic after having EGD) Objective Vital Signs: Vital Signs - 24 hr 06/29/23 06/29/23 06/29/23 19:47 20:01 22:01 Temperature 36.6 C Heart Rate 57 L 103 H Heart Rate [ Brachial] Heart Rate [ Monitoring electrodes] Heart Rate [ Radial] Respiratory 18 18 17 Rate Blood Pressure 97/65 116/94 H Blood Pressure [Right Brachial artery] O2 Saturation 97 97 06/29/23 06/30/23 06/30/23 23:00 00:39 03:59 Temperature 36.8 C 36.7 C Heart Rate 119 H Heart Rate [ Brachial] Heart Rate [ 136 H Monitoring electrodes] Heart Rate [ 110 H Radial] Respiratory 17 20 19 Rate Blood Pressure 133/93 H Blood Pressure 143/92 H 144/81 H [Right Brachial artery] O2 Saturation 97 95 96 06/30/23 06/30/23 06/30/23 06:29 06:37 06:38 Temperature Heart Rate Heart Rate [ Brachial] Heart Rate [ 131 H Monitoring electrodes] Heart Rate [ Radial] Respiratory Rate Blood Pressure 128/85 H Blood Pressure 135/90 H 128/85 H [Right Brachial artery] O2 Saturation 06/30/23 06/30/23 06/30/23 06:46 06:49 06:52 Temperature Heart Rate Heart Rate [ Brachial] Heart Rate [ 112 H 100 118 H Monitoring electrodes] Heart Rate [ Radial] Respiratory 17 Rate Blood Pressure Blood Pressure 127/71 126/71 112/78 [Right Brachial artery] O2 Saturation 96 06/30/23 06/30/23 06/30/23 06:57 07:50 08:20 Temperature 36.6 C 36.7 C Heart Rate Heart Rate [ 122 H Brachial] Heart Rate [ 114 H Monitoring electrodes] Heart Rate [ Radial] Respiratory 18 17 Rate Blood Pressure Blood Pressure 122/83 H 125/80 124/83 H [Right Brachial artery] O2 Saturation 97 96 06/30/23 06/30/23 06/30/23 08:41 10:34 11:11 Temperature 36.6 C 36.5 C Heart Rate Heart Rate [ 100 80 Brachial] Heart Rate [ Monitoring electrodes] Heart Rate [ Radial] Respiratory 17 17 Rate Blood Pressure 127/85 H Blood Pressure 118/80 126/86 H [Right Brachial artery] O2 Saturation 95 95 06/30/23 06/30/23 06/30/23 11:28 12:45 13:00 Temperature 36.6 C 36.4 C L 36.5 C Heart Rate Heart Rate [ 83 74 83 Brachial] Heart Rate [ Monitoring electrodes] Heart Rate [ Radial] Respiratory 17 16 16 Rate Blood Pressure Blood Pressure 123/72 103/58 L 115/73 [Right Brachial artery] O2 Saturation 94 96 94 06/30/23 06/30/23 13:18 13:32 Temperature 36.6 C 36.6 C Heart Rate Heart Rate [ 65 73 Brachial] Heart Rate [ Monitoring electrodes] Heart Rate [ Radial] Respiratory 16 16 Rate Blood Pressure Blood Pressure 115/68 123/73 [Right Brachial artery] O2 Saturation 95 93 Oxygen O2 Source Room air I&O (Last 24 Hrs): Intake and Output Totals x24h 06/28/23 06/29/23 06/30/23 23:59 23:59 23:59 Intake Total 1155.833 Output Total 450 Balance 705.833 General: Other (Lethargic after EGD) HEENT: Mucous membr. moist/pink Neck: Supple Neuro: Non Focal, Other (sleepy) Cardiovascular: Regular rate Respiratory: No respiratory distress Abdomen: No tenderness Extremities: No clubbing, No edema - Results Results: Laboratory Results WBC 10.8 x10^3/uL (4.8-10.8) 06/30/23 05:39 RBC 2.30 10^6/uL (4.70-6.10) L 06/30/23 05:39 Hgb 6.5 g/dL (14.0-18.0) L* 06/30/23 05:39 Hct 21.4 % (42.0-52.0) L 06/30/23 05:39 MCV 93.0 fL (80.0-94.0) 06/30/23 05:39 MCH 28.3 pg (27.0-31.0) 06/30/23 05:39 MCHC 30.4 g/dL (32.0-36.0) L 06/30/23 05:39 RDW 16.2 % (12.0-15.0) H 06/30/23 05:39 Plt Count 240 10^3/uL (130-450) 06/30/23 05:39 MPV 9.4 fL (7.4-11.4) 06/30/23 05:39 Neut # (Auto) 7.5 10^3/uL (1.5-6.6) H 06/30/23 05:39 Lymph # (Auto) 2.1 10^3/uL (1.5-3.5) 06/30/23 05:39 [place] # (Auto) 1.1 10^3/uL (0.0-1.0) H 06/30/23 05:39 Eos # (Auto) 0.0 10^3/uL (0.0-0.7) 06/30/23 05:39 Baso # (Auto) 0.0 10^3/uL (0.0-0.1) 06/30/23 05:39 Absolute Nucleated RBC 0.00 x10^3/uL 06/30/23 05:39 Nucleated RBC % 0.0 /100WBC 06/30/23 05:39 Sodium 140 mmol/L (135-145) 06/30/23 05:39 Potassium 4.0 mmol/L (3.5-4.5) 06/30/23 05:39 Chloride 112 mmol/L (101-111) H 06/30/23 05:39 Carbon Dioxide 22 mmol/L (21-32) 06/30/23 05:39 Anion Gap 6.0 (6-13) 06/30/23 05:39 BUN 54 mg/dL (6-20) H 06/30/23 05:39 Creatinine 1.2 mg/dL (0.6-1.3) 06/30/23 05:39 Estimated GFR (MDRD) 57 (>89) L 06/30/23 05:39 Glucose 120 mg/dL (74-104) H 06/30/23 05:39 Calcium 7.2 mg/dL (8.5-10.3) L 06/30/23 05:39 Total Bilirubin 0.6 mg/dL (0.2-1.0) 06/29/23 20:29 AST 23 IU/L (10-42) 06/29/23 20:29 ALT 11 IU/L (10-60) 06/29/23 20:29 Alkaline Phosphatase 117 IU/L (42-121) 06/29/23 20:29 Total Protein 6.6 g/dL (6.4-8.9) 06/29/23 20:29 Albumin 3.2 g/dL (3.2-5.5) 06/29/23 20:29 Globulin 3.4 g/dL (2.1-4.2) 06/29/23 20:29 Albumin/Globulin Ratio 0.9 (1.0-2.2) L 06/29/23 20:29 Lipase 42 U/L (11-82) 06/29/23 20:29 Urine Color YELLOW 06/29/23 23:41 Urine Clarity CLEAR (CLEAR) 06/29/23 23:41 Urine pH 6.0 PH (5.0-7.5) 06/29/23 23:41 Ur Specific [place] 1.020 (1.002-1.030) 06/29/23 23:41 Urine Protein TRACE mg/dL (NEGATIVE) 06/29/23 23:41 Urine Glucose (UA) NEGATIVE mg/dL (NEGATIVE) 06/29/23 23:41 Urine Ketones TRACE mg/dL (NEGATIVE) 06/29/23 23:41 Urine Occult Blood TRACE-INTA (NEGATIVE) 06/29/23 23:41 Urine Nitrite NEGATIVE (NEGATIVE) 06/29/23 23:41 Urine Bilirubin NEGATIVE (NEGATIVE) 06/29/23 23:41 Urine Urobilinogen 0.2 (NORMAL) E.U./dL (NORMAL) 06/29/23 23:41 Ur Leukocyte Esterase NEGATIVE (NEGATIVE) 06/29/23 23:41 Ur Microscopic Review NOT INDICATED 06/29/23 23:41 Urine Culture Comments NOT INDICATED 06/29/23 23:41 Blood Type O POSITIVE 06/30/23 06:42 Blood Type Recheck O POSITIVE 06/30/23 05:39 Antibody Screen NEGATIVE 06/30/23 06:42 Crossmatch IS Only See Detail 06/30/23 06:42
--- NOTE | 2023-06-30 14:33 | ANESTHESIA POST OP EVALUATION ---
Anesthesia Post Eval - Post Anesthesia Eval Vitals: Last Vital Signs Temp 36.5 C 06/30/23 14:00 Pulse 80 06/30/23 14:00 Resp 16 06/30/23 14:00 BP 116/78 06/30/23 14:00 Pulse Ox 96 06/30/23 14:00 O2 Flow Rate CV Function Including HR & BP: Stable Pain Control: Satisfactory Nausea & Vomiting: Negative Mental Status: Baseline Respiratory Status: Airway Patent Hydration Status: Satisfactory Anesthesia Complications: None
[2023-06-30] MEDS: URSODIOL 300 MG PO SCH (20:23)
[2023-06-30] MEDS ORDERED: TERAZOSIN 1 MG CAPSULE PO ONE (20:24)
[2023-06-30] MEDS ORDERED: TERAZOSIN 2 MG CAPSULE PO ONE (20:24)
[2023-06-30] MEDS ORDERED: TERAZOSIN 1 MG CAPSULE PO SCH (21:00)
[2023-06-30] MEDS ORDERED: PANTOPRAZOLE 40 MG VIAL IV SCH (21:00)
[2023-07-01 05:40] LABS: HCT - HEMATOCRIT 24.7 % (42.0-52.0); HGB - HEMOGLOBIN 7.6 g/dL (14.0-18.0); MEAN CORPUSCULAR HEMOGLOBIN 28.6 pg (27.0-31.0); MEAN CORPUSCULAR HGB CONC 30.8 g/dL (32.0-36.0); MEAN CORPUSCULAR VOLUME 92.9 fL (80.0-94.0); MEAN PLATELET VOLUME 9.7 fL (7.4-11.4); RED BLOOD COUNT 2.66 10^6/uL (4.70-6.10); WHITE BLOOD COUNT 11.1 x10^3/uL (4.8-10.8)
[2023-07-01] MEDS: FINASTERIDE 5 MG TABLET PO SCH (08:54)
[2023-07-01] MEDS: MULTIVITAMIN W/MINERALS TABLET PO SCH (08:54)
[2023-07-01] MEDS: PANTOPRAZOLE 40 MG VIAL IV SCH ×2 (08:54→21:23)
[2023-07-01] MEDS: CALCIUM CARBONATE CHEW 500 MG TABLET PO SCH (08:54)
[2023-07-01] MEDS: URSODIOL 300 MG PO SCH ×2 (08:55→21:23)
[2023-07-01] MEDS: LIDOCAINE PATCH 4% TOP SCH (08:55)
[2023-07-01] MEDS: SODIUM CHLORIDE FLUSH 0.9% 10 ML SYRINGE IVP SCH ×3 (08:55→23:25)
--- NOTE | 2023-07-01 09:55 | PROVIDER PROGRESS NOTE ---
Subjective - General Admit Date: 06/29/23 - Review of Systems All Other Systems: positive: Reviewed and negative Objective - Patient Data Vital Signs: Vital Signs x48h Temp Pulse Resp BP BP Pulse Ox 07/01/23 08:08 98.1 F 67 18 122/70 96 07/01/23 05:43 107/67 Weight: Weight 06/29/23 06/30/23 07/01/23 23:59 23:59 23:59 Weight (kg) 79.379 kg 79 kg Intake & Output: Intake and Output Totals x24h 06/29/23 06/30/23 07/01/23 23:59 23:59 23:59 Intake Total 500 2963.500 270 Output Total 650 400 Balance 500 2313.500 -130 - Lab Results Lab Results: 07/01/23 05:12 06/30/23 05:39 Other Lab Results: Lab Results x24hrs 07/01/23 06/30/23 06/30/23 Range/Units 05:12 18:13 06:42 WBC 11.1 H (4.8-10.8) x10^3/uL RBC 2.66 L (4.70-6.10) 10^6/uL Hgb 7.6 L 8.7 L (14.0-18.0) g/dL Hct 24.7 L (42.0-52.0) % MCV 92.9 (80.0-94.0) fL MCH 28.6 (27.0-31.0) pg MCHC 30.8 L (32.0-36.0) g/dL RDW 16.0 H (12.0-15.0) % Plt Count 225 (130-450) 10^3/uL MPV 9.7 (7.4-11.4) fL Blood Type O POSITIVE Antibody Screen NEGATIVE Crossmatch IS Only See Detail - Current Medications Current Medications: Current Medications Generic Name Dose Route Start Last Admin Trade Name Freq PRN Reason Stop Dose Admin Acetaminophen 650 mg 06/29/23 23:20 06/30/23 21:59 Acetaminophen 325 Mg Tablet PO 650 mg Q4HR PRN Administration Pain 1 to 4, or Fever Calcium Carbonate/Glycine 1,000 mg 06/30/23 09:00 07/01/23 08:54 Calcium Carbonate Chew 500 Mg Tablet PO 1,000 mg DAILY LUIS E Administration Finasteride 5 mg 06/30/23 09:00 07/01/23 08:54 Finasteride 5 Mg Tablet PO 5 mg DAILY ULIS E Administration Lidocaine 1 patch 06/30/23 09:00 07/01/23 08:55 Lidocaine Patch 4% TOP Not Given DAILY LUIS E Multivitamins/Minerals 1 tab 07/01/23 08:00 07/01/23 08:54 Multivitamin W/Minerals Tablet PO 1 tab DAILYWM LUIS E Administration Pantoprazole Sodium 40 mg 06/30/23 09:08 07/01/23 08:54 Pantoprazole 40 Mg Vial IV 40 mg BID LUIS E Administration Patient Own Med ( 2 each 06/30/23 21:00 07/01/23 08:55 Ursodiol 300 Mg PO 2 each Capsule) BID LUIS E Administration Sodium Chloride 10 ml 06/30/23 01:00 07/01/23 08:55 Sodium Chloride Flush 0.9% 10 Ml Syringe IVP 10 ml 0100,0900,1700 LUIS E Administration Impression/Plan - Problem List Problem List: General Surgery Progress Note S: Floyd feels well. He has no abdominal pain and is tolerating a general diet. He has demonstrated no nausea or emesis. O: VSS afeb; Abdomen is soft; He is AAO and cooperative and comfortable. I reviewed the EGD photos and the duodenal ulcer is indeed superficial and should respond to gastric acid suppression. This is likely a stress ulcer as he takes no NSAID's, is off his Eliquis, but has been involved in several stressful medical issues (failed lithotripsy, GLF with rib fractures, upcoming nephrostomy tube placement with additional follow-up Urologic procedures) during this holiday season. H&H a bit lower today Assessment: 1) UGI bleed -due to superficial duodenal ulcer - no clinical evidence of active bleeding 2) Acute blood loss anemia - due to # 1; His anemia may be related to I/O balance and/or we have not caught up with his initial blood loss 3) Syncopal episode causing GLF last admission - work-up in progress Recommendation: 1) Serial H&H; He has received 2U PRBC since admission. May require a third unit of blood to keep Hgb >8; If he requires more than that or develops clinical evidence of a re-bleed, EGD will be offered 2) Surgery will follow Dre Guerra MD, [facility] General Surgery Service
--- NOTE | 2023-07-01 18:17 | PROVIDER PROGRESS NOTE ---
Assessment/Plan - Problem List (1) Duodenal ulcer Assessment/Plan: Patient presented with coffee ground emesis, and melena He was started on Protonix drip, changed to Protonix iv BID He had his EGD which showed a duodenal ulcer, not bleeding at the time. Plan: As per Gen Surg: he is tolerating a diet, cont BID Protonix, follow Hgb (2) GI blood loss anemia At adm Hgb was 8.2 (Hgb 9.0 on labs last week). Next Hgb dropped to 6.5 and he received 2 U PRBCs transfused. Hgb karlo to 8.7 then dropped to 7.7 so he was not discharged. Plan: Trend Hgb, tranfuse if <7 As per Gen Surg: OK to discharge if Hgb stable for 24 hrs (3) A fib He is on Eliquis, which was put on hold Plan: I recommend at least 1-2 weeks off anticoagulant while ulcer heals, realizing risks of stroke. He reported that the Eliquis was put on hold 4 days before undergoing lithotrips y in May, and will again go on hold late next week before the next Urol procedure. So pt aware of the risks of being off his anticoagulant when being on it increases his risk for bleeds (4) BPH Plan: Continue home meds (5) Primary biliary cirrhosis Plan: Continue home meds (6) Recent rib fractures This occurred when he had syncope last month. When he was in the hospital then, an Echo was not done (probably because there was no Stacker Straightener on the days he was here, since we only have Stacker Straightener on , Tue, ). Plan: He needs an Echo for syncope W/U since he has a murmur Pain control with prn narcotics and Gen Surg added Lidoderm top patch - Current Meds Current Meds: Current Medications Generic Name Dose Route Start Last Admin Trade Name Freq PRN Reason Stop Dose Admin Acetaminophen 650 mg 06/29/23 23:20 06/30/23 21:59 Acetaminophen 325 Mg Tablet PO 650 mg Q4HR PRN Administration Pain 1 to 4, or Fever Diltiazem HCl 60 mg 07/01/23 14:00 07/01/23 14:19 Diltiazem 60 Mg Tablet PO Not Given TID [facility] Finasteride 5 mg 06/30/23 09:00 07/01/23 08:54 Finasteride 5 Mg Tablet PO 5 mg DAILY LUIS E Administration Lidocaine 1 patch 06/30/23 09:00 07/01/23 08:55 Lidocaine Patch 4% TOP Not Given DAILY LUIS E Multivitamins/Minerals 1 tab 07/01/23 08:00 07/01/23 08:54 Multivitamin W/Minerals Tablet PO 1 tab DAILYWM LUIS E Administration Pantoprazole Sodium 40 mg 06/30/23 09:08 07/01/23 08:54 Pantoprazole 40 Mg Vial IV 40 mg BID LUIS E Administration Patient Own Med ( 2 each 06/30/23 21:00 07/01/23 08:55 Ursodiol 300 Mg PO 2 each Capsule) BID LUIS E Administration Sodium Chloride 10 ml 06/30/23 01:00 07/01/23 08:55 Sodium Chloride Flush 0.9% 10 Ml Syringe IVP 10 ml 0100,0900,1700 LUIS E Administration - Lab Result Fish Bone Diagrams: 07/02/23 08:56 06/30/23 05:39 - Additional Planning My Orders: My Active Orders 07/01/23 08:00 Multivitamin W/Minerals [Theragran M] 1 tab PO DAILYWM 07/01/23 08:44 Orthostatic [Vital Signs - Orthostatic] [RC] QSHIFT 07/01/23 14:00 diltiaZEM [Cardizem] 60 mg PO TID 07/02/23 09:00 Calcium Carbonate [Tums] 500 mg PO BID Subjective - Subjective Patient Reports: Resting Comfortably, No Complaints Objective Vital Signs: Vital Signs - 24 hr 06/30/23 07/01/23 07/01/23 20:20 00:35 05:43 Temperature 36.6 C 36.7 C Heart Rate [ 86 Brachial] Heart Rate [ 54 L Monitoring electrodes] Respiratory 18 16 Rate Blood Pressure 107/67 Blood Pressure 127/71 102/60 [Left Brachial artery] Blood Pressure [Right Brachial artery] O2 Saturation 97 94 07/01/23 07/01/23 07/01/23 08:08 15:26 16:39 Temperature 36.7 C 36.5 C Heart Rate [ 67 118 H 103 H Brachial] Heart Rate [ Monitoring electrodes] Respiratory 18 20 Rate Blood Pressure Blood Pressure 122/70 [Left Brachial artery] Blood Pressure 127/72 [Right Brachial artery] O2 Saturation 96 98 Oxygen O2 Source Room air I&O (Last 24 Hrs): Intake and Output Totals x24h 06/29/23 06/30/23 07/01/23 23:59 23:59 23:59 Intake Total 500 2963.500 630 Output Total 650 400 Balance 500 2313.500 230 General: Alert, Oriented x3 HEENT: EOMI, Mucous membr. moist/pink Neck: Supple Neuro: Alert, Non Focal Cardiovascular: Regular rate, Other (Syst murmur, loudest at base) Abdomen: Normal bowel sounds, Soft, No tenderness Extremities: Other (1+ edema to above ankles) - Results Results: Laboratory Results WBC 11.1 x10^3/uL (4.8-10.8) H 07/01/23 05:12 RBC 2.66 10^6/uL (4.70-6.10) L 07/01/23 05:12 Hgb 8.9 g/dL (14.0-18.0) L 07/01/23 15:05 Hct 24.7 % (42.0-52.0) L 07/01/23 05:12 MCV 92.9 fL (80.0-94.0) 07/01/23 05:12 MCH 28.6 pg (27.0-31.0) 07/01/23 05:12 MCHC 30.8 g/dL (32.0-36.0) L 07/01/23 05:12 RDW 16.0 % (12.0-15.0) H 07/01/23 05:12 Plt Count 225 10^3/uL (130-450) 07/01/23 05:12 MPV 9.7 fL (7.4-11.4) 07/01/23 05:12 Neut # (Auto) 7.5 10^3/uL (1.5-6.6) H 06/30/23 05:39 Lymph # (Auto) 2.1 10^3/uL (1.5-3.5) 06/30/23 05:39 [place] # (Auto) 1.1 10^3/uL (0.0-1.0) H 06/30/23 05:39 Eos # (Auto) 0.0 10^3/uL (0.0-0.7) 06/30/23 05:39 Baso # (Auto) 0.0 10^3/uL (0.0-0.1) 06/30/23 05:39 Absolute Nucleated RBC 0.00 x10^3/uL 06/30/23 05:39 Nucleated RBC % 0.0 /100WBC 06/30/23 05:39 Sodium 140 mmol/L (135-145) 06/30/23 05:39 Potassium 4.0 mmol/L (3.5-4.5) 06/30/23 05:39 Chloride 112 mmol/L (101-111) H 06/30/23 05:39 Carbon Dioxide 22 mmol/L (21-32) 06/30/23 05:39 Anion Gap 6.0 (6-13) 06/30/23 05:39 BUN 54 mg/dL (6-20) H 06/30/23 05:39 Creatinine 1.2 mg/dL (0.6-1.3) 06/30/23 05:39 Estimated GFR (MDRD) 57 (>89) L 06/30/23 05:39 Glucose 120 mg/dL (74-104) H 06/30/23 05:39 Calcium 7.2 mg/dL (8.5-10.3) L 06/30/23 05:39 Total Bilirubin 0.6 mg/dL (0.2-1.0) 06/29/23 20:29 AST 23 IU/L (10-42) 06/29/23 20:29 ALT 11 IU/L (10-60) 06/29/23 20:29 Alkaline Phosphatase 117 IU/L (42-121) 06/29/23 20:29 Total Protein 6.6 g/dL (6.4-8.9) 06/29/23 20:29 Albumin 3.2 g/dL (3.2-5.5) 06/29/23 20:29 Globulin 3.4 g/dL (2.1-4.2) 06/29/23 20:29 Albumin/Globulin Ratio 0.9 (1.0-2.2) L 06/29/23 20:29 Lipase 42 U/L (11-82) 06/29/23 20:29 Urine Color YELLOW 06/29/23 23:41 Urine Clarity CLEAR (CLEAR) 06/29/23 23:41 Urine pH 6.0 PH (5.0-7.5) 06/29/23 23:41 Ur Specific [place] 1.020 (1.002-1.030) 06/29/23 23:41 Urine Protein TRACE mg/dL (NEGATIVE) 06/29/23 23:41 Urine Glucose (UA) NEGATIVE mg/dL (NEGATIVE) 06/29/23 23:41 Urine Ketones TRACE mg/dL (NEGATIVE) 06/29/23 23:41 Urine Occult Blood TRACE-INTA (NEGATIVE) 06/29/23 23:41 Urine Nitrite NEGATIVE (NEGATIVE) 06/29/23 23:41 Urine Bilirubin NEGATIVE (NEGATIVE) 06/29/23 23:41 Urine Urobilinogen 0.2 (NORMAL) E.U./dL (NORMAL) 06/29/23 23:41 Ur Leukocyte Esterase NEGATIVE (NEGATIVE) 06/29/23 23:41 Ur Microscopic Review NOT INDICATED 06/29/23 23:41 Urine Culture Comments NOT INDICATED 06/29/23 23:41 Blood Type O POSITIVE 06/30/23 06:42 Blood Type Recheck O POSITIVE 06/30/23 05:39 Antibody Screen NEGATIVE 06/30/23 06:42 Crossmatch IS Only See Detail 06/30/23 06:42
[2023-07-01] MEDS ORDERED: TERAZOSIN 1 MG CAPSULE PO SCH (21:00)
[2023-07-01] MEDS ORDERED: TERAZOSIN 2 MG CAPSULE PO SCH (21:00)
[2023-07-01] MEDS: ACETAMINOPHEN 325 MG TABLET PO PRN (23:46)
[2023-07-02] MEDS: LIDOCAINE PATCH 4% TOP SCH ×2 (08:18→08:26)
[2023-07-02] MEDS: PANTOPRAZOLE 40 MG VIAL IV SCH (08:18)
[2023-07-02] MEDS: FINASTERIDE 5 MG TABLET PO SCH (08:19)
[2023-07-02] MEDS: URSODIOL 300 MG PO SCH (08:19)
[2023-07-02] MEDS: MULTIVITAMIN W/MINERALS TABLET PO SCH (08:19)
[2023-07-02] MEDS: SODIUM CHLORIDE FLUSH 0.9% 10 ML SYRINGE IVP SCH ×2 (08:20→15:54)
[2023-07-02] MEDS ORDERED: CALCIUM CARBONATE CHEW 500 MG TABLET PO SCH (09:00)
--- NOTE | 2023-07-02 09:38 | PROVIDER PROGRESS NOTE ---
Progress Note General Surgery Progress Note S: AAO; Comfortable; Anxious to go home; No further coffee ground emesis; Tolerating a diet; O: VSS, afeb; H&H improved without need for further blood transfusion A: Acute blood loss anemia secondary to UGI bleed from a shallow duodenal ulcer - resolved Recommendation: Continue OP use of PPI for several months; Avoid gastric irritants; The decision to resume his eliquis should be made in conjunction with his PCP and Urology team that is managing his nephrolithiasis with near-term procedures. The General Surgery Service will sign off of case today. Please do not hesitat e to contact us if you have further questions or concerns or if you wish to have us continue to follow this patient with you. Dre Guerra MD, FACS General Surgery Service [phone]
--- NOTE | 2023-07-02 14:47 | PROVIDER PROGRESS NOTE ---
Hospitalist Cross-cover Note - Cross-Cover Note Cross-Cover Note: ECHOCARDIOGRAM REPORT 07/02/23 Indication: Syncope Image quality: Good Report: As a Board-certified Drywall Sander, I performed a bedside Echo with Doppler exam. Moderate left atrial and right atrial enlargement. Mildly enlarged left ventricle with moderate concentric LVH and mild global hypokinesis, EF 40 to 45%. Doppler shows grade 3 (severe) diastolic dysfunction (restrictive inflow). Right ventricle mildly dilated. Normal RV wall thickness. Mildly depressed RV contractility. Mitral annulus heavily calcified and mitral valve is mildly thickened. The aortic valve is trileaflet and heavily calcified with very restricted mobility. Tricuspid valve appear and pulmonic valve appear structurally normal. Doppler shows moderate mitral regurgitation, moderate aortic regurgitation, severe aortic stenosis with planimetry aortic valve area less than 1 cm and severe tricuspid regurgitation and moderate pulmonic regurgitation. Pulmonary artery systolic pressure calculated at 70-75 mmHg (severe pulm HTN present). Aortic root diameter mildly dilated and has calcific hayes. Pulmonary artery mildly dilated. No pericardial effusion Summary: Bi-atrial enlargement, moderate Dilated LV with LVH and global hypokinesis, with depressed LVEF of 40 to 45%, with severe diastolic dysfunction present. Dilated RV with mildly depressed RV EF Severe aortic stenosis, moderate aortic regurg, moderate mitral regurg and pulmonic regurg, severe tricuspid regurg. Severe pulmonary hypertension present. Mildly dilated aortic root and pulmonary artery diameters.
--- NOTE | 2023-07-02 15:12 | Discharge Plan ---
Discharge Plan Problem Reviewed?: Yes Disposition: Home, Self Care Condition: Fair Prescriptions: Ferrous Sulfate [Feosol] 325 mg PO DAILY #30 tablet Pantoprazole [Protonix] 40 mg PO BID #60 tablet Diet: Cardiac Activity Restrictions: Activity as Tolerated Shower Restrictions: No Driving Restrictions: No Instruction Topics: Aortic Valve Stenosis Dc, Gastric Duodenal Ulcer Ch, Aortic Stenosis Tx Ch, TAVR Health Concerns: You were hospitalized because you had coffee-ground vomiting which is a sign of upper intestinal bleeding. The black stools also indicated bleeding in the upper intestines. You needed blood transfusions when your hemoglobin dropped very low. You underwent upper endoscopy which showed a large duodenal ulcer. It was not bleeding at the time. Remain in the hospital to we are sure that you are hemoglobin level was stable and not dropping again. Your anticoagulant Eliquis has been on hold and should remain on hold to let the ulcer heal. Recommendation is to not take your blood thinner for 1 to 4 weeks. You may check with your Primary Care Provider or your Mandrel Cleaner for their recommendations. You may keep taking all your other Urology medications. You should be eating a non-spicy, soft diet to help the ulcer heal. Also, do not take any aspirin or aspirin-like products (such as Motrin, Aleve, Naprosyn, etc). You are being discharged home with prescription for iron replacement therapy to build up your anemia. You also need ulcer medication to heal the ulcer. Stay on these for at least 1 month. The new prescriptions were electronically sent to your pharmacy. However, the [facility] at [address] does not load into our Electronic Medical Record, so the prescriptions were sent to the [facility] in [place]. Therefore, you need to tell them at your pharmacy that sending the prescriptions there, was the only way I could send the scripts electronically to a [facility]. You underwent a cardiac Echocardiogram to evaluate the fainting spell that you had several weeks ago. This showed you have significant valvular heart disease. You have aortic stenosis which is severe and can cause fainting. Please have an office visit with your Mandrel Cleaner ELZBIETA. Copies of the Echo report are provided for you to take to your Cardiology office visit. If you have a warning symptom of dizziness, you should be seated or lay down. Also, do not drive a vehicle if you are lightheaded. Plan of Treatment: As above. Care Goals: Improvement in symptoms and stabilization of the goals. Assessment: The patient understands and is agreeable with the plan. Additional Instructions or Follow Up instructions: If you have new or worsening symptoms, call your PCP or your Urologist, or your Mandrel Cleaner for advice, or come to the ER. No Smoking: If you smoke, Please STOP! Call for help.
--- NOTE | 2023-07-02 15:43 | DISCHARGE SUMMARY ---
Discharge Summary Admit Date: 06/29/23 Discharge Date: 07/02/23 Discharging Provider: Dr Paulette Morales Primary Care Provider: Dr Tano Hernandez Code Status: Attempt Resuscitation Condition at Discharge: Fair Discharge Disposition: 01 Home, Self Care - HPI History of Present Illness: Mr Spivey is an 87 yo M with hx CHF, primary biliary cirrhosis, A fib on Eliquis, diverticulosis, recent failed lithotripsy for nephrolithiasis. Patient was admitted last week 06/21-06/22 for syncope and collapse resulting in acute rib fractures and 10% hydropneumothorax, had pain meds and conservative management. Presents to the ER today with c/o coffee ground emesis, dark tarry stools. Onset today, around 11 am, approx 2 dark tarry stools, vomited 3-4 times. Poor PO intake and has felt weak for the past 2-3 days. He did have breakfast this morning. He does have chest discomfort from the rib fractures, approx pain level is 3-4/10 now laying down, worse with activity. Denies fevers/chills, denies sob/cough. Denies prior history of GI bleed. He had a colonoscopy ~4 years, no abnormal findings per patient. Denies NSAIDs. Takes Eliquis twice daily as prescribed. In ER BP 97/65, HR 103, Hgb 8.2 (Hgb was 9 one weeks ago). The patient will be admitted for management of GI bleeding and hemodynamically significant anemia. - HOSPITAL COURSE Hospital Course: (1) Duodenal ulcer Patient presented with coffee ground emesis and melena. He underwent EGD and findings were a duodenal ulcer. It was not bleeding at the time of EGD. He was treated with Protonix BID and discharged on this. (2) Anemia due to GI blood loss At adm Hgb was 8.2 (Hgb 9.0 on labs last week). Next Hgb dropped to 6.5 and he received 2 U PRBCs transfused. Hgb karlo to 8.7 then dropped to 7.7 so he was not (3) A fib He was on Eliquis, which was put on hold. I recommend at least 1-2 weeks off anticoagulant while ulcer heals, realizing risks of stroke. He reported that the Eliquis was put on hold 4 days before undergoing the lithotripsy in May, and will again go on hold late next week before the next Urol procedure. So pt is aware of the risks of being off his anticoagulant, and that being on it increases his risk for bleeds. His HR was under good control. (4) Hx of syncope This occurred a month ago and he fractured ribs with the fall. He was on Surgery service then and did not have a detailed syncope work-up then. Because of a significant murmur, he had an Echo during this hospitalization. (5) Aortic stenosis His Echo showed severe Aortic stenosis, which can definitely be a cause for syncope. He was advised to have his follow-up with his Senior Environmental Technician sooner, and a copy of the Echo report was provided to the patient to show his Senior Environmental Technician. (6) Cardiomyopathy The Echo also showed mild gobal LV hypokinesis. This may be a new finding and could be from the Aortic Stenosis, indicating he needs urgent management of the . (7) BPH We continued his home meds (8) Primary biliary cirrhosis He is on no home meds for this (9) Rib fractures This occurred when he had syncope last month. When he was in the hospital then, an Echo was not done (possibly because there was no Pierogi Maker available on the days he was here, since we only have Echo on , Tue, ). Rib pain control was with prn narcotics and Gen Surg added Lidoderm topical patch, which he said did not help much. - ALLERGIES Allergies/Adverse Reactions: Allergies Allergy/AdvReac Type Severity Reaction Status Date / Time No Known Drug Allergies Allergy Verified 06/29/23 20:35 - MEDICATIONS Home Medications: Ambulatory Orders Medication Instructions Recorded Confirmed Terazosin [Hytrin] 5 mg PO QPM 01/05/18 06/30/23 Finasteride [Proscar] 5 mg PO DAILY 06/21/23 06/30/23 ursodioL [Actigall] 600 mg PO BID 06/21/23 06/30/23 Verapamil HCl [Verapamil ER] 240 mg PO QPM 06/30/23 06/30/23 Ferrous Sulfate [Feosol] 325 mg PO DAILY #30 tablet 07/02/23 Pantoprazole [Protonix] 40 mg PO BID #60 tablet 07/02/23 - PHYSICAL EXAM AT DISCHARGE General Appearance: positive: No acute distress, Alert Eyes Bilateral: positive: Normal inspection, EOMI ENT: positive: ENT inspection nml, No signs of dehydration Neck: positive: Nml inspection, No JVD Respiratory: positive: No respiratory distress, Breath sounds nml, Other (R ribcage tender) Cardiovascular: positive: Irregularly irregular, Systolic murmur (late peaking, loudest over aortic area.) Abdomen: positive: Non-tender, No organomegaly, Nml bowel sounds, No distention Skin: positive: Warm, Dry, Pallor Extremities: positive: Non-tender, No pedal edema Neurologic/Psychiatric: positive: Oriented x3, CN's nml (2-12), Motor nml - LABS Result Diagrams: 07/02/23 15:05 06/30/23 05:39 - DIAGNOSTIC IMAGING Diagnostic Imaging Results: Final report reviewed - FOLLOW UP Follow Up: See Urol as previously scheduled. See Senior Environmental Technician ELZBIETA. See PCP in 5-10 days for a hospital F/U visit. - TIME SPENT Time Spent in Discharge (Minutes): 50
[2023-07-02 16:12] VITALS: BP 131/74; O2SAT 97
== END 2023-07-02 16:34 | disposition home or self-care (01) | DRG 378 ==
LOC: ED 19:40 → MS2 23:20
PROVIDERS: ADMIT Student in an Organized Health Care Education/Training Program; ATTEND Internal Medicine
PROC: 0DB78ZX Excision of Stomach, Pylorus, Via Natural or Artificial Opening Endoscopic, Diagnostic (ICD-10-PCS; 2023-06-30)
PROC: 30233N1 Transfusion of Nonautologous Red Blood Cells into Peripheral Vein, Percutaneous Approach (ICD-10-PCS; principal; 2023-06-30 12:00)
DX: R19.5 Other fecal abnormalities (principal); D64.9 Anemia, unspecified; R42 Dizziness and giddiness; K26.4 Chronic or unspecified duodenal ulcer with hemorrhage; I10 Essential (primary) hypertension; D62 Acute posthemorrhagic anemia; Z87.891 Personal history of nicotine dependence; K64.4 Residual hemorrhoidal skin tags; I42.9 Cardiomyopathy, unspecified; I48.91 Unspecified atrial fibrillation; Z79.01 Long term (current) use of anticoagulants; I35.0 Nonrheumatic aortic (valve) stenosis; N40.0 Benign prostatic hyperplasia without lower urinary tract symptoms; K74.3 Primary biliary cirrhosis; I11.0 Hypertensive heart disease with heart failure; I50.9 Heart failure, unspecified; N20.0 Calculus of kidney; S22.41XD Multiple fractures of ribs, right side, subsequent encounter for fracture with routine healing; W19.XXXD Unspecified fall, subsequent encounter; R63.0 Anorexia; Z68.25 Body mass index [BMI] 25.0-25.9, adult; G62.9 Polyneuropathy, unspecified; M35.9 Systemic involvement of connective tissue, unspecified; I27.20 Pulmonary hypertension, unspecified; I37.1 Nonrheumatic pulmonary valve insufficiency
CPT/HCPCS: 36415; 80048; 80053; 81003; 83690; 85014; 85018; 85025; 85027; 86850; 86900; 86901; 86920; 93005; 96361; 96374; 96375; 99285; A9270; P9016; 81001; 87086; J8499

== ENCOUNTER 2023-12-17 10:08 | Emergency (ER) | payer MEDICARE, OTHER ==
[2023-12-17 10:40] VITALS: BP 93/52; O2SAT 98
--- NOTE | 2023-12-17 12:01 | ED Physician Documentation ---
PD HPI SKIN - Stated complaint Stated Complaint: LT LEG LAC - Chief complaint Chief Complaint: Wound - History obtained from History obtained from: Family - Additional information Additional information: 88-year-old gentleman presents with his who gives much of the history due to mild dementia. He is up-to-date on tetanus. About a week ago he scraped his leg and for last couple of days has developed some redness and purulent drainage. No fevers. PD PAST MEDICAL HISTORY - Past Medical History Past Medical History: Yes Cardiovascular: Hypertension, Atrial fibrillation Respiratory: None Neuro: Peripheral neuropathy, Fainting Endocrine/Autoimmune: Other GI: Other : Kidney stones Psych: None Musculoskeletal: Osteoarthritis Derm: None - Past Surgical History Past Surgical History: Yes Ortho: Knee replacement, Shoulder arthroplasty, Spine surgery HEENT: Cataracts - Present Medications Home Medications: Ambulatory Orders Medication Instructions Recorded Confirmed Terazosin [Hytrin] 5 mg PO QPM 01/05/18 06/30/23 Finasteride [Proscar] 5 mg PO DAILY 06/21/23 06/30/23 ursodioL [Actigall] 600 mg PO BID 06/21/23 06/30/23 Verapamil HCl [Verapamil ER] 240 mg PO QPM 06/30/23 06/30/23 Ferrous Sulfate [Feosol] 325 mg PO DAILY #30 tablet 07/02/23 Pantoprazole [Protonix] 40 mg PO BID #60 tablet 07/02/23 Bacitracin Zinc Oint 1 applic TOP BID #1 each 12/17/23 cephALEXin [Keflex] 500 mg PO Q6H #28 cap 12/17/23 - Allergies Allergies/Adverse Reactions: Allergies Allergy/AdvReac Type Severity Reaction Status Date / Time No Known Drug Allergies Allergy Verified 12/17/23 10:33 - Social History Does the pt smoke?: No Smoking Status: Never smoker Does the pt drink ETOH?: Yes Does the pt have substance abuse?: No - POLST Patient has POLST: No PD ED PE NORMAL - Vitals Vital signs reviewed: Yes - General General: No acute distress - Derm Derm: Normal color, Warm and dry - Extremities Extremities: Other (There is a shallow gash measuring about 4 cm long on the medial left calf with mild purulent drainage and minimal cellulitis. It was cultured during exam.) Results - Vitals Vitals: Vital Signs - 24 hr 12/17/23 10:29 Temperature 36.0 C L Heart Rate 59 L Respiratory 20 Rate Blood Pressure 93/52 L O2 Saturation 98 Oxygen O2 Source Room air PD Medical Decision Making - ED course ED course: He has a mild wound infection. Culture pending. Will place on Keflex, and counseled on wound care and return precautions. Departure - Departure Disposition: Home, Self Care Clinical Impression: Wound infection Condition: Good Record reviewed to determine appropriate education?: Yes Instructions: ED Wound Care Prescriptions: Bacitracin Zinc Oint 1 applic TOP BID #1 each cephALEXin [Keflex] 500 mg PO Q6H #28 cap Comments: I sent your prescription electronically to the [facility] in [place]. For wound care it is fine to wash with soap and water and then apply bacitracin ointment and a nonstick dressing such as Telfa. You can do this once a day after showering. Return if you worsen. We are performing a wound culture, the results should be done in 48-72 hours. If antibiotic change is necessary we will call you. Return if worse in the meantime, especially if you develop increased pain, fevers, cannot keep down the medication. Otherwise follow-up with your physician in approximately 2-3 days.
[2023-12-17] MEDS: BACITRACIN ZINC OINT 1 PACKET TOP STA (12:20)
[2023-12-17] MEDS: cephALEXin 250 MG CAPSULE PO STA (12:21)
== END 2023-12-17 12:30 | disposition home or self-care (01) ==
LOC: ED 10:08
DX: S81.812A Laceration without foreign body, left lower leg, initial encounter (principal); L08.9 Local infection of the skin and subcutaneous tissue, unspecified; L03.116 Cellulitis of left lower limb; W22.8XXA Striking against or struck by other objects, initial encounter
CPT/HCPCS: 87070; 87205; 99283; A9270